=== PATIENT | female | born 1980 | race Caucasian/White ===

== ENCOUNTER 2020-09-21 10:34 | Outpatient (REF) | payer OTHER, SELFPAY ==
[2020-09-29 03:27] LABS: HPV 16 RNA NOT DETECTED (NOT DETECTED); HPV mRNA E6/E7 rflx Detected (Not Detected)
== END 2020-09-21 10:35 | disposition home or self-care (01) ==
LOC: HO.LAB 10:34
PROVIDERS: PCP Internal Medicine; Visit Provider Obstetrics & Gynecology
DX: Z01.419 Encounter for gynecological examination (general) (routine) without abnormal findings (principal); Z11.51 Encounter for screening for human papillomavirus (HPV)
CPT/HCPCS: 87624; 87625; 88142

== ENCOUNTER 2020-10-08 09:38 | Outpatient (REF) | payer OTHER, SELFPAY | END 2020-10-08 09:39 | disposition home or self-care (01) | LOC: HO.LAB 09:38 | PROVIDERS: PCP Internal Medicine; Visit Provider Obstetrics & Gynecology | DX: R87.810 Cervical high risk human papillomavirus (HPV) DNA test positive (principal) | CPT/HCPCS: 57456; 88305; 88342; 88360 ==

== ENCOUNTER → 2020-10-22 11:29 | Outpatient (BNVA) | payer OTHER, SELFPAY | PROVIDERS: PCP Internal Medicine; Visit Provider Obstetrics & Gynecology ==

== ENCOUNTER → 2020-11-15 09:30 | Outpatient (BNVA) | payer OTHER, SELFPAY | PROVIDERS: PCP Internal Medicine; Visit Provider Obstetrics & Gynecology | DX: N87.0 Mild cervical dysplasia (principal) | CPT/HCPCS: 99212 ==

== ENCOUNTER 2020-11-23 08:31 | Day surgery (SDC) | payer OTHER, SELFPAY ==
[2020-11-09 13:17] VITALS: BMI 28.3
--- NOTE | 2020-11-15 08:37 | HO.ANESPROP2 ---
Documented by User: Lisa Maddox 11/15/20 08:37 HPI - Anesthesia Eval Consult details Narrative: 40yo F for [facility] Active Problems Active Problems: All Active Problems (Updated 10/22/20 @ 11:45 by Vinod Gupta MD) Dysplasia of cervix, low grade (OMAR 1) (Acute) ASCUS with positive high risk HPV (Acute) Well woman exam (Acute) Past Medical History Medical History Dysplasia of cervix, low grade (OMAR 1) Family History Family History Maternal Grandmother Breast CA Maternal Aunt Breast CA Surgical History Surgical History H/O hand surgery H/O knee surgery Social History Social History Patient Tobacco Use Status: Never used Tobacco Use of substances other than those prescribed or required for medical reasons: No Are you DNR?: No Advance Directives: No Advance Directives Information Provided: Yes Meds Allergies Allergy/AdvReac Type Severity Reaction Status Date / Time No Known Allergies Allergy Verified 11/23/20 08:58 Home Medications Medication Instructions Recorded Confirmed Last Taken Type l.norgest-eth.estradiol triphasic 1 tab PO DAILY 06/22/20 Unknown History 50-30 (6)/75-40(5)/125-30(10) tablet (Enpresse) Exam Exam Date and Time: November 15, 2020 0837 Height,Weight and Vital Signs: Height 5 ft 4 in Weight 75 kg Assessment and Plan Assessment Anesthesia Assessment: Chart Reviewed Documented by User: Lani Garcia 11/23/20 10:14 PMFSH Past Medical History Medical History Dysplasia of cervix, low grade (OMAR 1) Family History Family History Maternal Grandmother Breast CA Maternal Aunt Breast CA Surgical History Surgical History H/O hand surgery H/O knee surgery Social History Social History Patient Tobacco Use Status: Never used Tobacco Use of substances other than those prescribed or required for medical reasons: No Are you DNR?: No Advance Directives: No Advance Directives Information Provided: Yes Meds Allergies Allergy/AdvReac Type Severity Reaction Status Date / Time No Known Allergies Allergy Verified 11/23/20 08:58 Home Medications Medication Instructions Recorded Confirmed Last Taken Type l.norgest-eth.estradiol triphasic 1 tab PO DAILY 06/22/20 Unknown History 50-30 (6)/75-40(5)/125-30(10) tablet (Enpresse) Exam Airway Mallampati Class: II TM Dist: >3cm Neck ROM: Full Heart: RRR Lungs: CTA Assessment and Plan Assessment Anesthesia Assessment: Anesthesia Plan Discussed and Chart Reviewed Final Anesthetic Review NPO: Yes ASA Class: I Final Preanesthetic Review: Meds/Allgs Chart Reviewed, Consent Obtained/Reviewed and Anes Risks/Benef Reviewed Patient Risk: Low Procedure Risk: Low Anesthetic Plan Anesthetic Plan: GA Disposition: Standard PACU
[2020-11-23 08:48] VITALS: BP 119/70; PULSE 71; RESP 16; TEMP 36.7; O2SAT 100; BMI 25.7
[2020-11-23 08:56] LABS: UPreg QC Valid YES; Urine Pregnancy NEGATIVE (NEGATIVE)
--- NOTE | 2020-11-23 09:05 | MHC.SHP ---
Pre-Procedural Eval Section A Date of Service: 11/23/20 The patient is an INPATIENT: No Changes since office visit: No Cold of Flu in the past 2 weeks, No New Medical Problems, No Changes in Medication and No Patient answered all questions The History & Physical has been completed within 30 days and I have reviewed it.: Yes Section B Chief Complaint: mild cervical dysplasia Allergies: Allergies Allergy/AdvReac Type Severity Reaction Status Date / Time No Known Allergies Allergy Verified 11/23/20 08:58 Plan Diagnosis/Plan: Unchanged I have reviewed the history and physical and performed a pertinent physical examination on my patient. No changes have occurred unless specified.
[2020-11-23] MEDS: Lactated Ringers 1,000 ML 100 ML IVCONT (09:11)
--- NOTE | 2020-11-23 10:21 | PM.OP ---
Brief Operative Note Date of Service: 11/23/20 Pre-op diagnosis: Persistent OMAR 1 with positive ECC Procedure: LEEP CONE with post CONE ECC Surgeon: Vinod Gupta MD Anesthesia: local and other (Paracervical block) Was an Corrosion Prevention Metal Sprayer used for this Procedure?: No Estimated blood loss (mL): 0 Pathology: other (Cervical cone, Post cone ECC) Condition: stable Disposition: other (Home)
--- NOTE | 2020-11-23 10:21 | W.PM.OPN ---
Operative Note Operative Note Date of Service: 11/23/20 Narrative: Preop diagnosis: Persistent OMAR 1 with + ECC Operation: LEEP Cone with post cone ECC Post op diagnosis: same Anesthesia: paracervical block Complications: none Pathology: Cervical cone with endocervix & post cone RCC QBL: minimal Procedure: The patient was put in the dorsal lithotomy position, was prepped and draped in the usual sterile fashion. A sterile speculum was inserted inside the patient vagina. Using Lugol solution the cervix with Dyed with Lugol solution to identifiy the abnormal demarcating line. 10 cc of Marcaine0.5% with epinephrine were given at 2,4 , 8, and 10 o'clock. Using a medium-size loop wire, the cervical cone was excised followed by post cone ECC was done afterwards. Hemostasis was assured using cautery and Monsel solution. All instruments were taken out of the patient's vaginal cavity. the patient tolerated the procedure well and was discharged home with the following instructions: call if temperature is above 100.4, vaginal bleeding, abdominal pain or nausea or vomiting. Follow-up in the office in 2 weeks for postop visit
[2020-11-23 10:30] VITALS: BP 112/54; PULSE 82; RESP 18; TEMP 36.3; O2SAT 100
[2020-11-23 10:35] VITALS: BP 118/54; PULSE 73; RESP 18; O2SAT 97
[2020-11-23 10:40] VITALS: BP 118/54; PULSE 74; RESP 18; O2SAT 97
[2020-11-23 10:45] VITALS: BP 108/53; PULSE 77; RESP 18; O2SAT 97
[2020-11-23 11:00] VITALS: BP 120/68; PULSE 62; RESP 18; TEMP 36.8; O2SAT 100
== END 2020-11-23 11:40 | disposition home or self-care (01) ==
PROVIDERS: Nurse Practitioner; PCP Internal Medicine; Visit Provider Obstetrics & Gynecology
PROC: 0UBC7ZZ Excision of Cervix, Via Natural or Artificial Opening (ICD-10-PCS; CPT 57522; principal; 2020-11-23 10:00)
DX: N87.0 Mild cervical dysplasia (principal); Z79.899 Other long term (current) drug therapy
CPT/HCPCS: 57522; 81025; 88305; 88307; J1100; J1885; J2250; J2405; J3010

== ENCOUNTER 2020-11-26 13:32 | Outpatient (REF) | payer OTHER, SELFPAY ==
--- NOTE | ~2020-11-26 | MM_ITS ---
EXAMINATION: MM SCREENING DIGITAL BREAST TOMOSYNTHESIS, BILATERAL CLINICAL INFORMATION: Screening. Asymptomatic. The lifetime risk of breast cancer based on the Tyrer-Cuzick Model is 17%. COMPARISON: Mammography: 11/23/2019, 10/04/2018 (baseline) TECHNIQUE: Digital breast tomosynthesis is performed in both the craniocaudal and mediolateral oblique views along with computer-aided detection (CAD). Synthesized 2D images are generated from the tomosynthesis. Additional bilateral exaggerated CC views are provided. FINDINGS: The breasts are heterogeneously dense, which may obscure small masses (ACR BI-RADS breast composition Category c). Parenchymal pattern is similar to prior studies. Smooth nodular asymmetry posterior lower inner left breast is stable. There is stable nodular asymmetry posterior upper outer right breast. No developing density or interval mass or architectural abnormality. No abnormal calcifications. The axilla and skin contours are unremarkable. There are no significant changes from prior studies. MM/MM tomosynthesis screening BI IMPRESSION: No significant changes from prior exams. ASSESSMENT: BI-RADS 2: Benign RECOMMENDATION: Routine annual mammography screening. This patient's information was entered into a reminder system with a target due date for their next mammogram.
== END 2020-11-26 13:33 | disposition home or self-care (01) ==
LOC: HO.MAMMO 13:32
PROVIDERS: PCP Internal Medicine; Visit Provider Obstetrics & Gynecology
DX: Z12.31 Encounter for screening mammogram for malignant neoplasm of breast (principal)
CPT/HCPCS: 77063; 77067

== ENCOUNTER → 2020-11-29 11:28 | Outpatient (BNVA) | payer OTHER, SELFPAY | PROVIDERS: PCP Internal Medicine; Visit Provider Obstetrics & Gynecology ==

== ENCOUNTER 2021-11-07 09:37 | Outpatient (REF) | payer OTHER, SELFPAY ==
[2021-11-14 03:52] LABS: HPV 16 RNA NOT DETECTED (NOT DETECTED); HPV mRNA E6/E7 rflx Detected (Not Detected)
== END 2021-11-07 09:38 | disposition home or self-care (01) ==
LOC: HO.LAB 09:37
PROVIDERS: Visit Provider Obstetrics & Gynecology
DX: Z01.419 Encounter for gynecological examination (general) (routine) without abnormal findings (principal); Z11.51 Encounter for screening for human papillomavirus (HPV)
CPT/HCPCS: 87624; 87625; 88142

== ENCOUNTER 2021-11-25 14:20 | Outpatient (REF) | payer OTHER, SELFPAY | END 2021-11-25 14:21 | disposition home or self-care (01) | LOC: HO.LAB 14:20 | PROVIDERS: PCP Internal Medicine; Visit Provider Obstetrics & Gynecology | DX: R87.612 Low grade squamous intraepithelial lesion on cytologic smear of cervix (LGSIL) (principal) | CPT/HCPCS: 57454; 81025; 88305 ==

== ENCOUNTER 2021-11-28 10:33 | Outpatient (REF) | payer OTHER, SELFPAY ==
--- NOTE | ~2021-11-28 | MM_ITS ---
EXAMINATION: MM SCREENING DIGITAL BREAST TOMOSYNTHESIS, BILATERAL CLINICAL INFORMATION: Screening. Asymptomatic. The lifetime risk of breast cancer based on the Tyrer-Cuzick Model is 16.0%. COMPARISON: Mammography: November 26, 2020 and studies dating back to October 04, 2018 TECHNIQUE: Digital breast tomosynthesis is performed in both the craniocaudal and mediolateral oblique views along with computer-aided detection (CAD). Synthesized 2D images are generated from the tomosynthesis. FINDINGS: The breasts are heterogeneously dense, which may obscure small masses (ACR BI-RADS breast composition Category c). There is a stable parenchymal pattern seen bilaterally with stable circumscribed densities. No new abnormal dominant mass or suspicious grouping of microcalcifications. MM/MM tomosynthesis screening BI IMPRESSION: There are no significant changes from prior study. ASSESSMENT: BI-RADS 1: Negative RECOMMENDATION: Routine annual mammography screening. This patient's information was entered into a reminder system with a target due date for their next mammogram.
== END 2021-11-28 10:34 | disposition home or self-care (01) ==
LOC: HO.MAMMO 10:33
PROVIDERS: PCP Internal Medicine; Visit Provider Internal Medicine
DX: Z12.31 Encounter for screening mammogram for malignant neoplasm of breast (principal)
CPT/HCPCS: 77063; 77067

== ENCOUNTER → 2021-12-11 10:13 | Outpatient (BNVA) | payer OTHER, SELFPAY | PROVIDERS: PCP Internal Medicine; Visit Provider Obstetrics & Gynecology | DX: R87.612 Low grade squamous intraepithelial lesion on cytologic smear of cervix (LGSIL) (principal) | CPT/HCPCS: 99212 ==

== ENCOUNTER → 2021-12-25 08:44 | Outpatient (BNVA) | payer OTHER, SELFPAY | PROVIDERS: PCP Internal Medicine; Visit Provider Obstetrics & Gynecology | DX: R87.612 Low grade squamous intraepithelial lesion on cytologic smear of cervix (LGSIL) (principal) | CPT/HCPCS: 99212 ==

== ENCOUNTER 2021-12-27 09:56 | Outpatient (REF) | payer OTHER, SELFPAY ==
[2021-12-27 10:44] LABS: Hematocrit 37.5 % (37.0-47.0); Hemoglobin 13.4 g/dl (12.0-16.0); Mean Corpuscular HGB Conc 35.7 g/dl (31.0-35.0); Mean Corpuscular Hemoglobin 30.9 pg (27.0-33.0); Mean Corpuscular Volume 86.6 fL (80.0-98.0); Mean Platelet Volume 9.3 fL (9.4-12.3); Platelet Count 196 X10*3/uL (160-400); Red Blood Count 4.33 X10*6/uL (4.20-5.50); Red Cell Distribution Width 12.4 % (11.0-16.0); White Blood Count 5.9 X10*3/uL (4.8-10.8)
[2021-12-27 11:12] LABS: Alanine Aminotransferase 25 U/L (0-31); Albumin Level 4.2 g/dL (3.5-5.0); Alkaline Phosphatase 38 U/L (39-117); Anion Gap 14 (12-20); Aspartate Amino Transferase 23 U/L (5-31); Bilirubin Total 0.9 mg/dL (0.0-1.0); Blood Urea Nitrogen 7 mg/dL (9-16); Calcium 9.2 mg/dL (8.4-10.2); Carbon Dioxide 25 mmol/L (22-29); Chloride 106 mmol/L (96-108); Cholesterol 222 mg/dL; Estimated Glomerular Filt Rate > 60; Glucose Fasting 82 mg/dL (60-99); HDL Cholesterol 57 mg/dL; LDL Cholesterol Calculated 144 mg/dl; Potassium 3.7 mmol/L (3.3-5.1); Sodium 141 mmol/L (135-145); Triglycerides 107 mg/dL
[2021-12-27 11:25] LABS: TSH reflex Free T4 3.32 uIU/mL (0.32-4.0); Vitamin D 25-OH Total 30.9 ng/mL (>30)
[2021-12-27 12:00] LABS: Folate 17.1 ng/mL (> or = 4.0); Vitamin B12 257 pg/mL (200-900)
== END 2021-12-27 09:57 | disposition home or self-care (01) ==
LOC: HO.LAB 09:56
PROVIDERS: PCP Internal Medicine; Visit Provider Nurse Practitioner Family
DX: Z00.00 Encounter for general adult medical examination without abnormal findings (principal)
CPT/HCPCS: 36415; 80053; 80061; 82306; 82607; 82746; 84443; 85027

== ENCOUNTER → 2022-01-24 10:01 | Day surgery (SDC) | payer OTHER, SELFPAY ==
[2022-01-20 10:40] VITALS: BMI 27.4
--- NOTE | 2022-01-22 14:16 | HO.ANESPROP2 ---
Documented by User: Lisa Maddox NP 01/22/22 14:18 HPI - Anesthesia Eval Consult details Narrative: 41yo F for LEEP Cone with post cone ECC s/p LEEP 10/2020 with GA-LMA 4 PMFSH Active Problems Active Problems: All Active Problems (Updated 12/27/21 @ 13:43 by RENAY Merida) Well woman exam (Acute) ASCUS with positive high risk HPV (Acute) Dysplasia of cervix, low grade (OMAR 1) (Acute) LGSIL on Pap smear of cervix (Acute) Adult general medical exam (Acute) Hyperlipidemia (Acute) Overweight (BMI 25.0-29.9) (Acute) Past Medical History Medical History Overweight (BMI 25.0-29.9) Dysplasia of cervix, low grade (OMAR 1) Family History Family History Maternal Grandmother Breast CA Maternal Aunt Breast CA Surgical History Surgical History History of loop electrical excision procedure (LEEP) H/O knee surgery H/O hand surgery Social History Housing: House Alcohol intake: current Alcohol intake frequency: holidays/special occasions only Alcohol type: wine Patient Tobacco Use Status: Never used Tobacco e-Cigarette/Vaping Use: Never Used Second Hand Smoke Exposure: No service: No Current occupational status: employed Current occupational exposures/hazards: No Cognitive needs: No Hearing needs: No Vision needs: No Meds Allergies Allergy/AdvReac Type Severity Reaction Status Date / Time No Known Allergies Allergy Verified 01/06/23 10:38 Home Medications Medication Instructions Recorded Confirmed Last Taken Type copper 380 square mm intrauterine intrauterine 12/31/22 01/06/23 Unknown History device (ParaGard T 380A) Exam Exam Date and Time: January 22, 2022 1416 Height,Weight and Vital Signs: Height 5 ft 4 in Weight 72.575 kg Pertinent Lab Results Pertinent Lab Results: Laboratory Tests 12/27/21 12/27/21 10:09 10:09 WBC 5.9 Hgb 13.4 Hct 37.5 Plt Count 196 Sodium 141 Potassium 3.7 Chloride 106 Carbon Dioxide 25 BUN 7 L Creatinine 0.68 Documented by User: Mario Alberto Mckeon MD 03/20/23 00:42 [facility] [place] Past Medical History Medical History Overweight (BMI 25.0-29.9) Dysplasia of cervix, low grade (OMAR 1) Functional capacity: independent ambulation Family History Family History Maternal Grandmother Breast CA Maternal Aunt Breast CA Family history of problems with anesthesia: No Surgical History Surgical History History of loop electrical excision procedure (LEEP) H/O knee surgery H/O hand surgery History of Problems with Anesthesia: No Social History Housing: House Alcohol intake: current Alcohol intake frequency: holidays/special occasions only Alcohol type: wine Patient Tobacco Use Status: Never used Tobacco e-Cigarette/Vaping Use: Never Used Second Hand Smoke Exposure: No service: No Current occupational status: employed Current occupational exposures/hazards: No Cognitive needs: No Hearing needs: No Vision needs: No Meds Allergies Allergy/AdvReac Type Severity Reaction Status Date / Time No Known Allergies Allergy Verified 01/06/23 10:38 Home Medications Medication Instructions Recorded Confirmed Last Taken Type copper 380 square mm intrauterine intrauterine 12/31/22 01/06/23 Unknown History device (ParaGard T 380A) Exam Airway Mallampati Class: III TM Dist: >3cm Loose/Missing/Broken Teeth: Yes (Fillings ) Assessment and Plan Assessment Anesthesia Assessment: Anesthesia Plan Discussed and Chart Reviewed Final Anesthetic Review Family History of Problems with Anesthesia: No History of Problems with Anesthesia: No NPO: Yes ASA Class: II Final Preanesthetic Review: Meds/Allgs Chart Reviewed, Consent Obtained/Reviewed and Anes Risks/Benef Reviewed Patient Risk: Intermediate Procedure Risk: Intermediate Anesthetic Plan Anesthetic Plan: GA and Agree w/ Assess. and Plan Disposition: Standard PACU
[2022-01-24 10:12] VITALS: BMI 27.4
[2022-01-24 10:17] VITALS: BP 131/76; PULSE 72; RESP 16; TEMP 36.7; O2SAT 98
[2022-01-24 10:21] LABS: UPreg QC Valid YES; Urine Pregnancy NEGATIVE (NEGATIVE)
[2022-01-24] MEDS: Lactated Ringers 1,000 ML 100 ML IVCONT (10:34)
--- NOTE | 2022-01-24 11:19 | MHC.SHP ---
Pre-Procedural Eval Section A Date of Service: 01/24/22 The patient is an INPATIENT: No Changes since office visit: No Cold of Flu in the past 2 weeks, No New Medical Problems, No Changes in Medication and No Patient answered all questions The History & Physical has been completed within 30 days and I have reviewed it.: Yes Section B Chief Complaint: Low grade squamous intraepithelial lesion on cytol Allergies: Allergies Allergy/AdvReac Type Severity Reaction Status Date / Time No Known Allergies Allergy Verified 12/27/21 09:40 Plan Diagnosis/Plan: Unchanged I have reviewed the history and physical and performed a pertinent physical examination on my patient. No changes have occurred unless specified.
--- NOTE | 2022-01-24 12:12 | P.BOP_ITS ---
Brief Operative Note Date of Service: 01/24/22 Pre-op diagnosis: Discrepancy between cytology showing low-grade VENUS cannot exclude high-grade VENUS and pathology, normal on cervical biopsies/ECC Post-op diagnosis: same Procedure: LEEP CONE with post CONE ECC Surgeon: Vinod Gupta MD Anesthesia: GLMA and other (Paracervical block) Was an Adjustment Examiner used for this Procedure?: No Estimated blood loss (mL): 0 Pathology: other (Cervical cone, top-hat, Post cone ECC) Condition: stable Disposition: other (Home)
--- NOTE | 2022-01-24 12:13 | P.OP_ITS ---
Operative Note Operative Note Date of Service: 01/24/22 Narrative: Preop diagnosis: Discrepancy between cytology showing LGSIL cannot rule out high-grade VENUS, pathology , normal on biopsies/ECC Operation: LEEP Cone with post cone ECC Post op diagnosis: same Anesthesia: paracervical block/GLMA Complications: none Pathology: Cervical cone with top-hat & post cone ECC QBL: minimal Procedure: The patient was put in a dorsal lithotomy position, scrubbed and draped in the usual sterile fashion. A speculum was inserted inside the patient's vagina. The cervix is assessed using the colposcope with acetic acid , the lesions were seen, and at least 1 cm of the squamocolumnar junction was observed. 20 x 5 mm size loop was selected based upon the diameter of the lesion. Lugol solution was used to outline the lesions and area of the transformation zone order to be removed 10 cc of xylocaine with epinephrine were injected submucosally into the surface of the cervix (ectocervix) at the 3, 6, 9, and 12 o'clock positions. The electrosurgical generator is set at 40 king on blend 1. The loop is carefully passed simultaneously around and under the transformation zone, in order to ensure excising it making sure the lesion is at least 5 mm far from the specimen margins . The loop was allowed to glide through the cervix from one side to the other, allowing the cutting current to divide the tissue. Additional tissue was excised from this area with a smaller-diameter loop , endo cervical top-hat excision was performed An endo cervical curettage is performed following completion of excision, and hemostasis is obtained with a Ball electrode or regular tip cautery. At the en d, Monsel's solution was applied to the cone bed. The patient tolerated the procedure well and, all instruments were taken out of the patient vaginal cavity, and the patient was transferred to the PACU in stable condition.
[2022-01-24 12:25] VITALS: BP 132/64; PULSE 72; RESP 16; TEMP 36.1; O2SAT 100
[2022-01-24 12:30] VITALS: BP 116/61; PULSE 75; RESP 16; O2SAT 98
[2022-01-24 12:35] VITALS: BP 132/66; PULSE 74; RESP 16; O2SAT 98
[2022-01-24 12:40] VITALS: BP 128/73; PULSE 60; RESP 16; TEMP 36.1; O2SAT 98
[2022-01-24 12:55] VITALS: BP 140/77; PULSE 65; RESP 16; TEMP 36.1; O2SAT 100
== END | disposition home or self-care (01) ==
PROVIDERS: Nurse Practitioner; PCP Internal Medicine; Visit Provider Obstetrics & Gynecology
PROC: 0UBC7ZZ Excision of Cervix, Via Natural or Artificial Opening (ICD-10-PCS; CPT 57522; principal; 2022-01-24 11:30)
DX: R87.612 Low grade squamous intraepithelial lesion on cytologic smear of cervix (LGSIL) (principal); E66.3 Overweight; Z68.27 Body mass index [BMI] 27.0-27.9, adult
CPT/HCPCS: 57461; 81025; 88305; 88307; J1100; J2250; J2405; J3010

== ENCOUNTER → 2022-05-13 13:32 | Outpatient (BNVA) | payer OTHER, SELFPAY | PROVIDERS: Visit Provider Obstetrics & Gynecology | DX: Z30.09 Encounter for other general counseling and advice on contraception (principal) | CPT/HCPCS: 99212 ==

== ENCOUNTER 2022-08-19 11:24 | Outpatient (REF) | payer OTHER, SELFPAY ==
[2022-08-23 09:13] LABS: HPV 16 RNA NOT DETECTED (NOT DETECTED); HPV mRNA E6/E7 rflx Detected (Not Detected)
== END 2022-08-19 11:25 | disposition home or self-care (01) ==
LOC: HO.LNP 11:24
PROVIDERS: Visit Provider Obstetrics & Gynecology
DX: Z12.4 Encounter for screening for malignant neoplasm of cervix (principal); Z11.51 Encounter for screening for human papillomavirus (HPV); N87.1 Moderate cervical dysplasia
CPT/HCPCS: 87624; 87625; 88142; 99212

== ENCOUNTER 2022-09-18 08:43 | Outpatient (REF) | payer OTHER, SELFPAY | END 2022-09-18 08:44 | disposition home or self-care (01) | LOC: HO.LNP 08:43 | PROVIDERS: Visit Provider Obstetrics & Gynecology | DX: N87.1 Moderate cervical dysplasia (principal) | CPT/HCPCS: 57454; 81025; 88305 ==

== ENCOUNTER → 2022-10-23 08:35 | Outpatient (BNVA) | payer OTHER, SELFPAY | PROVIDERS: Visit Provider Obstetrics & Gynecology | DX: Z30.09 Encounter for other general counseling and advice on contraception (principal); N87.0 Mild cervical dysplasia | CPT/HCPCS: 99212 ==

== ENCOUNTER 2022-11-17 14:52 | Outpatient (AMB) | payer OTHER, SELFPAY ==
[2022-11-17 15:04] VITALS: BP 128/74; BMI 26.9
--- NOTE | 2022-11-17 15:04 | A.OFFVIS_ITS ---
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 Allergies No Known Allergies Allergy (Verified 11/17/22 15:04) Is last menstrual period known: Yes Last menstrual period: 11/13/22 [facility] Medical History Dysplasia of cervix, low grade (OMAR 1) Overweight (BMI 25.0-29.9) Surgical History H/O hand surgery H/O knee surgery History of loop electrical excision procedure (LEEP) Family History Maternal Grandmother Breast CA Maternal Aunt Breast CA Social History Housing: House Alcohol intake: current Alcohol intake frequency: holidays/special occasions only Alcohol type: wine Patient Tobacco Use Status: Never used Tobacco e-Cigarette/Vaping Use: Never Used Second Hand Smoke Exposure: No service: No Current occupational status: employed Current occupational exposures/hazards: No Cognitive needs: No Hearing needs: No Vision needs: No Female Reproductive History Menstrual Age of Menarche: 11 Date of last menstrual period: 11/13/22 Physical Exam Vital Signs: Last Vital Signs BP 128/74 11/17/22 15:04 BMI result Body Mass Index 26.9 Office Procedures IUD Insert/Removal Details Details: The patient is presenting for Paraguard IUD insertion. Her last menstrual period was within the last 5 days, Urine test was done in the office and was negative; All the contraindications were excluded. The following possible complications were discussed with the patient: Intrauterine , Ectopic , Sepsis, Pelvic Infection, Irregular Bleeding, Perforation, Expulsion. The possible adverse effects were discussed with the patient including but not limited to: increased uterine bleeding, dysmenorrhea , others Alternative options were discussed with the patient including but not limited: control pills, patch, NuvaRing, Depo-medroxyprogesterone acetate, Nexplanon, copper IUD, sterilization, vasectomy, others The procedure was explained in detail to patient , at the end patient signed the informed consent obtained. Urine test was done in the office and was negative A no touch technique was used throughout the procedure. A speculum was placed into vagina and cervix was cleaned with betadine). A tenaculum was placed. A plastic sound was advanced through the external and internal os until it reached the fundus of the uterus, the depth was 7 cm. The sound was then withdrawn. The ParaGard IUD was loaded in a sterile manner and advanced into position. The string was visualized and cut to 3 cm. Tenaculum site hemostatic. All instruments removed from vagina. Patient tolerated the procedure well. NO complications were noted. Patient was instructed to call for fever over 100.4, significant pain unrelieved by Motrin, IUD expulsion, heavy bleeding, or abnormal discharge. In addition, the following clinical considerations were discussed with the patient to call for removal: Unexplained fever , or suspected , Pelvic pain or pain during sex ,HIV positive seroconversion in herself or her partner , Possible exposure to sexually transmitted infections Unusual vaginal discharge or genital sores , severe vaginal bleeding or bleeding that lasts a long time, or if she misses a menstrual period, Inability to feel IUD s threads Counseled the patient that the IUD does not protect against STI's, recommended use of condoms for the first 7 days post insertion and explained to the patient that condoms are recommended for patients at risk for sexually transmitted infections. Follow up appointment made for 6 weeks following insertion. This note was generated with a voice recognition program. Some errors may have been overlooked during the review of this note. Sometimes these errors may affect the content or meaning of a given sentence. [id number] Insertion Procedure code (CPT) selection complete Office Meds ParaGard T 380A Performing Provider: Vinod Gupta MD Documented (not given) by: Vinod Gupta MD on 11/17/22 15:14 Dose Route Admin Location Lot Number Expiration Date NDC [employer] Room Attendant 1 device intrauterine Results AMB Test Urine AMB Test Urine Negative Last Edit by TRIPP Loredo on 11/17/22 15:05 Results Reviewed Results Reviewed: Laboratory Last Values [facility] Clinic Negative 11/17/22 15:05 Assessment & Plan Assessment & Plan Orders: Orders CT NG by PCR Today Z30.430 - Encounter for insertion of intrauterine contraceptive device AMB IUD Insertion/Removal - Patient Supply Today Z30.430 - Encounter for insertion of intrauterine contraceptive device AMB HCG Urine Test Today Z32.02 - Encounter for test, result negative Medications: New ParaGard T 380A (copper) 1 device intrauterine ONCE 1 ea 0RF IUD insertion NS Z30.430 - Encounter for insertion of intrauterine contraceptive device Coding Level of Care Code Procedure Only Diagnoses CPT Codes Details - CPT: 72826-RDR Insertion ([id number])
== END 2022-11-17 15:16 | disposition home or self-care (01) ==
LOC: HO.HWS 14:52
PROVIDERS: PCP Internal Medicine; Visit Provider Obstetrics & Gynecology
DX: Z30.430 Encounter for insertion of intrauterine contraceptive device (principal); Z32.02 Encounter for pregnancy test, result negative
CPT/HCPCS: 58300

== ENCOUNTER 2022-11-17 14:52 | Outpatient (REF) | payer OTHER, SELFPAY ==
[2022-11-17 18:01] LABS: CT PCR NOT DETECTED (Not Detect.); NG PCR NOT DETECTED (Not Detect.)
== END 2022-11-17 14:53 | disposition home or self-care (01) ==
LOC: HO.LNP 14:52
PROVIDERS: PCP Internal Medicine; Visit Provider Obstetrics & Gynecology
DX: Z30.430 Encounter for insertion of intrauterine contraceptive device (principal)
CPT/HCPCS: 0353U; 58300; 81025; J7300

== ENCOUNTER 2022-12-01 12:27 | Outpatient (REF) | payer OTHER, SELFPAY ==
--- NOTE | ~2022-12-01 | MM_ITS ---
EXAMINATION: MM SCREENING DIGITAL BREAST TOMOSYNTHESIS, BILATERAL CLINICAL INFORMATION: Screening. Asymptomatic. The lifetime risk of breast cancer based on the Tyrer-Cuzick Model is 16.2%. COMPARISON: Mammography: 11/28/2021, 11/26/2020, 10/04/2018. TECHNIQUE: Digital breast tomosynthesis is performed in both the craniocaudal and mediolateral oblique views along with computer-aided detection (CAD). Synthesized 2D images are generated from the tomosynthesis. FINDINGS: The breasts are heterogeneously dense, which may obscure small masses (ACR BI-RADS breast composition Category c). There are no suspicious masses, suspicious grouped calcifications, or areas of architectural distortion. The parenchymal pattern is stable from prior exams. There are stable small circumscribed nodular parenchymal densities in both breasts. MM/MM tomosynthesis screening BI IMPRESSION: No mammographic evidence of malignancy. Stable benign findings. ASSESSMENT: BI-RADS BI-RADS 2 - Benign Findings RECOMMENDATION: Routine annual mammography screening. 1 year F/U This examination should not preclude the clinical evaluation of a suspicious palpable abnormality. This patient's information was entered into a reminder system with a target due date for their next mammogram.
== END 2022-12-01 12:28 | disposition home or self-care (01) ==
LOC: HO.MAMMO 12:27
PROVIDERS: PCP Internal Medicine; Visit Provider Internal Medicine
DX: Z12.31 Encounter for screening mammogram for malignant neoplasm of breast (principal)
CPT/HCPCS: 77063; 77067

== ENCOUNTER → 2022-12-01 12:30 | Outpatient (BNV) | payer OTHER, SELFPAY | PROVIDERS: PCP Internal Medicine; Visit Provider Radiology Diagnostic Radiology | DX: Z12.31 Encounter for screening mammogram for malignant neoplasm of breast (principal) | CPT/HCPCS: 77063; 77067 ==

== ENCOUNTER 2022-12-31 08:33 | Outpatient (AMB) | payer OTHER, SELFPAY ==
--- NOTE | 2022-12-31 08:38 | A.OFFVIS_ITS ---
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 The patient is complaining of heavier and prolonged menstrual cycle [facility] Medical History Dysplasia of cervix, low grade (OMAR 1) Overweight (BMI 25.0-29.9) Surgical History H/O hand surgery H/O knee surgery History of loop electrical excision procedure (LEEP) Family History Maternal Grandmother Breast CA Maternal Aunt Breast CA Social History Housing: House Alcohol intake: current Alcohol intake frequency: holidays/special occasions only Alcohol type: wine Patient Tobacco Use Status: Never used Tobacco e-Cigarette/Vaping Use: Never Used Second Hand Smoke Exposure: No service: No Current occupational status: employed Current occupational exposures/hazards: No Cognitive needs: No Hearing needs: No Vision needs: No Female Reproductive History Menstrual Age of Menarche: 11 Date of last menstrual period: 12/30/22 Review of Systems Const All systems reviewed & are unremarkable except as noted in HPI and below Physical Exam Vital Signs: Last Vital Signs BP 130/70 12/31/22 08:43 BMI result Body Mass Index 26.9 General: Yes no CVA tenderness External Female Exam: normal external appearance and normal appearance of the urethra Speculum Exam - Vagina: normal appearance of the vagina, normal palpation, no lesions and no masses Speculum Exam - Cervix: normal appearance of the cervix, normal palpation, no lesions, no masses, nontender and Other cervical findings present (IUD thread in place) Bimanual exam- vagina & uterus: normal bimanual exam, normal palpation, uterine size normal, normal palpation, uterine shape normal, No Cervical tenderness present and non-tender Bimanual Exam- Adnexa, other: normal adnexae Back/Spine/Pelvis Back: no CVA tenderness Assessment & Plan Assessment & Plan (1) IUD check up: Code(s): Z30.431 - Encounter for routine checking of intrauterine contraceptive device Plan: UPT done in the office was negative. Recommended nonsteroidal anti-inflammatory drugs p.o. q.8 hours day 1-3 in an effort to decrease dysmenorrhea and hypermenorrhea secondary to ParaGard IUD. Discussed with the patient the finding on physical exam, IUD string in place, the patient was reassured. Instructions given to patient to call in case of persistent heavy menstrual cycle, temperature above 100.4, severe cramping/pelvic pain, abnormal discharge or abnormal uterine bleeding or if she misses her. Otherwise follow-up at her annual exam appointment. All questions answered, the patient verbalized u nderstanding. Coding Level of Care Code Est Pt Level 3 (05091) Diagnoses IUD check up Z30.431
[2022-12-31 08:43] VITALS: BP 130/70; BMI 26.9
== END 2022-12-31 09:20 | disposition home or self-care (01) ==
PROVIDERS: PCP Internal Medicine; Visit Provider Obstetrics & Gynecology
DX: Z30.431 Encounter for routine checking of intrauterine contraceptive device (principal)
CPT/HCPCS: 99213

== ENCOUNTER → 2022-12-31 08:33 | Outpatient (BNVA) | payer OTHER, SELFPAY | PROVIDERS: PCP Internal Medicine; Visit Provider Obstetrics & Gynecology | DX: Z30.431 Encounter for routine checking of intrauterine contraceptive device (principal) | CPT/HCPCS: 99212 ==

== ENCOUNTER 2023-01-06 10:15 | Outpatient (AMB) | payer OTHER, SELFPAY ==
[2023-01-06 10:24] VITALS: BP 110/72; BMI 26.6
--- NOTE | 2023-01-06 10:24 | A.OFFPC_ITS ---
Vital Signs 01/06/23 10:24 Height 5 ft 4 in Weight 155 lb BMI 26.6 BP 110/72 Blood Pressure Location Lt brachial Position Sitting Intake Visit Reasons: PE Intake Note: Patient here for a physical exam Rehabilitation Tech Required: No Accompanied by: Self / Same As Patient Allergies No Known Allergies Allergy (Verified 01/06/23 10:38) Medication List - Last Reconciled 01/06/23 by Asia King MD copper (ParaGard T 380A) intrauterine Tobacco use date assessed: 01/06/23 Dental Screening Dental Screen Date: 01/06/23 Did you have a dental visit in the last 12 months?: Yes Did you have a dental problem in the last 6 months where you did not have access to dental care?: No Was dental information given to patient?: Patient has dentist HPI HPI Comments History of Present Illness Details This is a 42-year-old female that comes for her physical exam. Last mammogram was November 2022 and was normal. Last Pap smear was August 2022 and was normal. No chest pain or shortness of breath. No acute complaints. [facility] Medical History Overweight (BMI 25.0-29.9) Dysplasia of cervix, low grade (OMAR 1) Surgical History History of loop electrical excision procedure (LEEP) H/O knee surgery H/O hand surgery Family History Maternal Grandmother Breast CA Maternal Aunt Breast CA Social History Housing: House Alcohol intake: current Alcohol intake frequency: holidays/special occasions only Alcohol type: wine Patient Tobacco Use Status: Never used Tobacco e-Cigarette/Vaping Use: Never Used Second Hand Smoke Exposure: No service: No Current occupational status: employed Current occupational exposures/hazards: No Cognitive needs: No Hearing needs: No Vision needs: No Female Reproductive History Menstrual Age of Menarche: 11 Questionnaire PHQ-9 Over the last 2 weeks, how often have you been bothered by any of the following problems? 1. Little interest or pleasure in doing things: not at all 2. Feeling down, depressed, or hopeless: not at all 3. Trouble falling or staying asleep, or sleeping too much: not at all 4. Feeling tired or having little energy: not at all 5. Poor appetite or overeating: not at all 6. Feeling bad about yourself - or that you are a failure or have let yourself or your family down: not at all 7. Trouble concentrating on things, such as reading the newspaper or watching television: not at all 8. Moving or speaking so slowly that other people could have noticed. Or the opposite - being so fidgety or restless that you have been moving around a lot more than usual: not at all 9. Thoughts that you would be better off or of hurting yourself in some way: not at all Total score: 0 Depression Screening Interpretation: Negative 93365 - PHQ-9 Billing: Yes Source: Developed by Drs. Seferino Solano, Cathy Merchant, Joshua Nj and colleagues, with an educational johnathon from [employer]. Thrive Questionnaire Date Thrive assessed: 01/06/23 I am a: Patient What is your living situation today?: I have a steady place to live Within the past 12 months, did the food you bought not last and you didn't have the money to get more?: Never true Within the past 12 months, did you worry whether your food would run out before you got money to buy more?: Never true Do you have trouble paying for medicines?: No Do you have trouble getting transportation to medical appointments?: No Do you have trouble paying your heating and electricity bill?: No Do you have trouble taking care of your child, family member or friend?: No Do you have trouble with day-to-day activities such as bathing, preparing meals, shopping, managing finances, etc.?: No Are you currently unemployed and looking for a job?: No Are you interested in more education?: No Please select the resources that you would like help with: None Currently or been in a relationship where the following occur: no concerns reported AUDIT C Alcohol Use Questionnaire (AUDIT-C) 1. How often do you have a drink containing alcohol?: Monthly or less 2. How many drinks containing alcohol do you have on a typical day when you are drinking?: 1 or 2 3. How often do you have six or more drinks on one occasion?: Never Total Score: 1 Score Reviewed/Action Taken: No MAURILIO-7 AMB Questionnaire MAURILIO-7 Date MAURILIO - 7 assessed: 01/06/23 Feeling nervous, anxious, or on edge: 0 = Not at all Not being able to stop or control worryin = Not at all Worrying too much about different things: 0 = Not at all Trouble relaxin = Not at all Being so restless that it is hard to sit still: 0 = Not at all Becoming easily annoyed or irritable: 0 = Not at all Feeling afraid as if something awful might happen: 0 = Not at all Total MAURILIO-7 score (0-4 normal; 5-9 mild; 10-14 moderate; 15-21 severe): 0 Source: Developed by Drs. Seferino Solnao, Cathy Merchant, Joshua Nj and colleagues, with an educational johnathon from [employer]. MAURILIO-7 Assessment Billing MAURILIO-7 Assessment Tool: MAURILIO-7 Assessment 20357 Review of Systems Const All systems reviewed & are unremarkable except as noted in HPI and below Eyes Reports no additional complaints, Denies change in vision and Denies other visual disturbances Card Denies chest pain at rest, Denies chest pain with activity, Denies edema, Denies irregular heart rhythm, Denies claudication, Denies dyspnea, Denies dyspnea on exertion, Denies orthopnea, Denies paroxysmal nocturnal dyspnea and Denies slow heart rate Resp Denies cough, Denies dyspnea and Denies dyspnea on exertion GI Denies abdominal pain, Denies change in bowel habits, Denies excessive flatus, Denies nausea and Denies vomiting Denies urinary incontinence, Denies urinary hesitancy and Denies urinary urgency Musc Denies abnormal gait, Denies atrophy, Denies deformity and Denies limited range of motion Skin/Breast Denies bleeding lesions, Denies changing lesions and Denies rash Neuro Denies abnormal gait, Denies confusion and Denies lack of coordination Psych Denies confusion Physical exam (Primary Care) Vital Signs: Last Vital Signs BP 110/72 01/06/23 10:24 BMI result Body Mass Index 25.9 Tobacco/Smoking Status: Tobacco use Status Tobacco use date assessed 01/06/23 01/06/23 10:29 Patient Tobacco Use Status Never used Tobacco 01/06/23 10:29 e-Cigarette/Vaping Use Never Used 01/06/23 10:29 PHQ-9: PHQ-9 Score PHQ-9: Total score 0 01/06/23 10:29 Depression Screening Interpretation: Negative Thrive Assessment: Date of Thrive Assessment Date Thrive assessed 01/06/23 01/06/23 10:29 Currently or been in a relationship where the following occur: no concerns reported Const General: No confusion Orientation/consciousness: patient oriented x3 and No confusion Eyes General: appearance normal, both eyes and all related structures Eyelids: Yes eyelids normal Conjunctivae: conjunctivae normal Neck Neck: Yes normal visual inspection and Yes supple Resp Effort & Inspection: normal respiratory effort Auscultation: clear to auscultation bilaterally Cardio Jugular venous distension: no JVD Rate: regular rate Rhythm: regular rhythm Heart sounds: S1 normal heart sound present and S2 normal heart sound present GI Inspection: Yes normal to inspection Palpation (GI): Soft to palpation and nontender Auscultation: normal bowel sounds Skin General skin exam: no rashes or lesions noted Neuro General: patient oriented x3, no focal motor deficits and No confusion Extrem General: Yes full ROM Psych Appearance: grossly normal Assessment and Plan Assessment & Plan (1) Adult general medical exam: Code(s): Z00.00 - Encounter for general adult medical examination without abnormal findings Plan: Repeat in a year Coding Level of Care Code Est Pt Prev Care 40-64y(24168) Diagnoses Adult general medical exam Z00.00 Additional Codes MAURILIO-7 Assessment Billing - MAURILIO-7 Assessment Tool: MAURILIO-7 Assessment 49473 ([id number]) Time Spent (min) 30
== END 2023-01-06 11:33 | disposition home or self-care (01) ==
PROVIDERS: PCP Internal Medicine; Visit Provider Internal Medicine
DX: Z00.00 Encounter for general adult medical examination without abnormal findings (principal)
CPT/HCPCS: 99396

== ENCOUNTER 2023-08-31 10:19 | Outpatient (REF) | payer OTHER, SELFPAY ==
[2023-08-31 15:13] LABS: CT PCR NOT DETECTED (Not Detect.); NG PCR NOT DETECTED (Not Detect.)
[2023-09-04 01:54] LABS: HPV mRNA E6/E7 rflx Not Detected (Not Detected)
== END 2023-08-31 10:20 | disposition home or self-care (01) ==
LOC: HO.LNP 10:19
PROVIDERS: Visit Provider Obstetrics & Gynecology
DX: Z01.419 Encounter for gynecological examination (general) (routine) without abnormal findings (principal); R87.610 Atypical squamous cells of undetermined significance on cytologic smear of cervix (ASC-US); R87.810 Cervical high risk human papillomavirus (HPV) DNA test positive; N92.6 Irregular menstruation, unspecified; N93.9 Abnormal uterine and vaginal bleeding, unspecified
CPT/HCPCS: 0353U; 87624; 88142; 99396

== ENCOUNTER 2023-08-31 10:19 | Outpatient (AMB) | payer OTHER, SELFPAY ==
--- NOTE | 2023-08-31 10:20 | A.OFFVIS_ITS ---
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 Complaining of irregular menstrual cycles preop Last Pap/HPV was in 08/17 ascus/HPV E6/E7 positive, colpo/biopsy/ECC was OMAR 1 Last Mammogram was BI-RADS 2 in 12/17 No previous screening colonoscopy PFSH Medical History Overweight (BMI 25.0-29.9) Dysplasia of cervix, low grade (OAMR 1) Surgical History History of loop electrical excision procedure (LEEP) H/O knee surgery H/O hand surgery Family History Maternal Grandmother Breast CA Maternal Aunt Breast CA Social History Housing: House Alcohol intake: current Alcohol intake frequency: holidays/special occasions only Alcohol type: wine Patient Tobacco Use Status: Never used Tobacco e-Cigarette/Vaping Use: Never Used Second Hand Smoke Exposure: No service: No Current occupational status: employed Current occupational exposures/hazards: No Cognitive needs: No Hearing needs: No Vision needs: No Female Reproductive History Menstrual Age of Menarche: 11 Date of last pap smear: 08/20/22 Date of Mammogram: 12/01/22 Review of Systems Const All systems reviewed & are unremarkable except as noted in HPI and below Card Reports as per HPI Resp Reports as per HPI GI Reports as per HPI and Reports no additional complaints Reports as per HPI Physical Exam Vital Signs: Last Vital Signs BP 116/62 08/31/23 10:21 BMI result Body Mass Index 26.8 Const General: cooperative, healthy appearing and comfortable Chest Chest palpation & inspection: normal inspection of the chest and normal palpation of entire chest wall Breast/axilla inspection: normal inspection of the breasts and normal inspection of the axillae Breast/axilla palpation: normal palpation of the breasts, normal palpation of th e axillae and no axillary lymphadenopathy Resp Effort & Inspection: normal respiratory effort Auscultation: clear to auscultation bilaterally Percussion: percussion normal Cardio Palpation: normal PMI Rate: regular rate Rhythm: regular rhythm Heart sounds: no murmurs and no rubs Peripheral pulses: Peripheral pulses 2+ throughout GI Inspection: Yes normal to inspection Palpation (GI): Soft to palpation, nontender, no guarding, not rigid and No hepatosplenomegaly present Percussion: Yes normal to percussion Auscultation: normal bowel sounds Rectal Exam - Female: deferred General: Yes bladder normal to palpation External Female Exam: No lesion Speculum Exam - Vagina: normal appearance of the vagina, normal palpation, normal vaginal discharge and not erythematous Speculum Exam - Cervix: normal appearance of the cervix and normal palpation Bimanual exam- vagina & uterus: normal bimanual exam, normal palpation, uterine size normal, bladder normal to palpation, consistency normal and normal palpation Bimanual Exam- Adnexa, other: normal adnexae, no masses and no tenderness Assessment & Plan Assessment & Plan (1) Well woman exam: Comment: OMAR 1 in 2022 OMAR 2 status post LEEP cone with free margins Code(s): Z01.419 - Encounter for gynecological examination (general) (routine) without abnormal findings Category: Medical Plan: Cotesting done. Instructions given the patient to schedule next screen Mammogram in 12/18. Counseled the patient about the recommended dietary allowance of 1000 mg of Calcium & 600 IU of vitamin D. The patient was instructed to perform monthly self-breast exams and to schedule an annual exam in a year; The patient was refer to GI for screening colonoscopy. Instructed the patient to call our office back in case a referral appointment is not scheduled, missed or canceled so that we will assist on rescheduling another appointment, the patient verbalized understanding agreed with the plan. Instructed the patient to schedule annual exam in a year (2) Abnormal uterine bleeding (AUB): Code(s): N93.9 - Abnormal uterine and vaginal bleeding, unspecified Category: Medical Plan: Co testing done, GC and chlamydia taken CBC, TSH, prolactin, HCG, and pelvic ultrasound ordered. Discussed with the patient the different causes of abnormal bleeding including thyroid disorders, uterine and ovarian pathology, endometrial hyperplasia, carcinoma and other potential causes. Discussed with the patient the work up including CBC (to r/o anemia), TSH, pelvic Ultrasound, endometrial biopsy to r/o endometrial pathology. All questions answered and the patient verbalized understanding. Instructed the patient to schedule an appointment for an endometrial biopsy in 2 weeks. Orders: Orders TSH reflex Free T4 Today N93.9 - Abnormal uterine and vaginal bleeding, unspecified Prolactin Today N93.9 - Abnormal uterine and vaginal bleeding, unspecified Complete Blood Count no Diff Today N93.9 - Abnormal uterine and vaginal bleeding, unspecified HCG Quantitative Today N93.9 - Abnormal uterine and vaginal bleeding, uns pecified US pelvic and transvaginal Today N93.9 - Abnormal uterine and vaginal bleeding, unspecified Referrals Gastroenterology Referral Z12.11 - Encounter for screening for malignant neoplasm of colon Coding Level of Care Code Est Pt Prev Care 40-64y(09063) Diagnoses Well woman exam Z01.419 Abnormal uterine bleeding (AUB) N93.9
[2023-08-31 10:21] VITALS: BP 116/62; BMI 26.8
== END 2023-08-31 10:45 | disposition home or self-care (01) ==
PROVIDERS: Visit Provider Obstetrics & Gynecology
DX: Z01.419 Encounter for gynecological examination (general) (routine) without abnormal findings (principal); N93.9 Abnormal uterine and vaginal bleeding, unspecified
CPT/HCPCS: 99396

== ENCOUNTER 2023-09-07 11:24 | Outpatient (REF) | payer OTHER, SELFPAY ==
--- NOTE | ~2023-09-07 | US_ITS ---
EXAMINATION: ULTRASOUND PELVIC, COMPLETE CLINICAL INFORMATION: Abnormal uterine and vaginal bleeding. COMPARISON: None. TECHNIQUE: Pelvic ultrasound was performed using transvaginal and transabdominal technique without spectral doppler. FINDINGS: The uterus is of normal size and echogenicity measuring 8.7 x 4.4 x 5.7 cm. The uterus appears normal. An IUD appears appropriately position. The IUD obscures the endometrium. The right ovary measures 2.2 x 1.4 x 1.6 cm, volume 2.3 mL. The right ovary appears normal. The left ovary measures 4.2 x 2.9 x 3.3 cm, volume 20.6 mL. Thinly septated 2.7 cm cyst in the left ovary. No color flow is seen in the septation. In a premenopausal woman this is considered a benign cyst and no follow-up imaging is recommended. There is no pelvic free fluid. US/US pelvic and transvaginal IMPRESSION: IUD appears appropriately positioned. No explanation for abnormal uterine and vaginal bleeding.
== END 2023-09-07 11:25 | disposition home or self-care (01) ==
LOC: HO.US 11:24
PROVIDERS: PCP Internal Medicine; Visit Provider Obstetrics & Gynecology
DX: N93.9 Abnormal uterine and vaginal bleeding, unspecified (principal)
CPT/HCPCS: 76830; 76856

== ENCOUNTER 2023-10-05 12:15 | Outpatient (AMB) | payer OTHER, SELFPAY ==
--- NOTE | 2023-10-05 12:25 | MHC.OFFVIS ---
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 Information Interpreted: non-clinical & clinical Mate Fishing Vessel: Mate Fishing Vessel Present (Aidyn) Allergies No Known Allergies Allergy (Verified 10/05/23 12:33) Post menopausal: No Patient : No HPI Comments Details: Presenting for endometrial biopsy for AUB and endometrial cells seen on Pap smear [facility] Medical History Overweight (BMI 25.0-29.9) Dysplasia of cervix, low grade (OMAR 1) Surgical History History of loop electrical excision procedure (LEEP) H/O knee surgery H/O hand surgery Family History Maternal Grandmother Breast CA Maternal Aunt Breast CA Social History Housing: House Alcohol intake: current Alcohol intake frequency: holidays/special occasions only Alcohol type: wine Patient Tobacco Use Status: Never used Tobacco e-Cigarette/Vaping Use: Never Used Second Hand Smoke Exposure: No service: No Current occupational status: employed Current occupational exposures/hazards: No Cognitive needs: No Hearing needs: No Vision needs: No Female Reproductive History Menstrual Age of Menarche: 11 control method: copper IUCD Date of last pap smear: 09/02/23 Office Procedures Endometrial Biopsy Details: The patient was counseled regarding the indication and benefits of endometrial sampling to rule out endometrial pathology including not limited to endometrial hyperplasia or endometrial cancer and others; The alternatives (Either do nothing vs. hysteroscopy D&C) & the risks were discussed with the patient including but not limited: pain, uterine perforation, bleeding, infection, possible injury to bladder, bowel, ureter, possible need for blood transfusion with all its possible risks. The patient verbalized understanding all questions answered and signed consent. Urine test done in the office was negative The patient was placed into the dorsal lithotomy position; a speculum was inserted in the vagina. Using aseptic technique for the procedure, the cervix was cleansed with Betadine. The anterior lip of the cervix was grasped with a single tooth tenaculum. The uterus was sounded to 7 cm with a 4 mm Pipelle was used. Tissues samples were obtained and placed in formalin, in a patient labeled container and sent to the pathology department. At the end of the procedure, there was minimal bleeding noted The patient tolerated the procedure well and was discharged in good condition with the following instructions: Nothing in the vagina until the bleeding stops. No sex until the bleeding stops, to call if any of the following occurs: fever (>100.4), flu-like symptoms, abdominal pain, heavy bleeding, four smelling vaginal discharge. The patient was instructed to schedule a Follow up appointment in 2 weeks to discuss pathology results of the biopsy and treatment options. This note was generated with a voice recognition program. Some errors may have been overlooked during the review of this note. Sometimes these errors may affect the content or meaning of a given sentence. [id number] Biopsy Assessment & Plan Assessment & Plan (1) Abnormal uterine bleeding (AUB): Code(s): N93.9 - Abnormal uterine and vaginal bleeding, unspecified Category: Medical Plan: EMB done, see procedure note (2) Unexplained endometrial cells on cervical Pap smear: Code(s): R87.618 - Other abnormal cytological findings on specimens from cervix uteri Category: Medical Plan: EMB done, see procedure note Orders: Orders AMB Endometrial Biopsy Today N93.9 - Abnormal uterine and vaginal bleeding, unspecified, R87.618 - Other abnormal cytological findings on specimens from cervix uteri Coding Level of Care Code Procedure Only Diagnoses Abnormal uterine bleeding (AUB) N93.9 Unexplained endometrial cells on cervical Pap smear R87.618 CPT Codes Endometrial Biopsy - CPT: 15378-Favdoebdowd Biopsy ([id number])
[2023-10-05 12:26] VITALS: BP 122/74; BMI 26.8
== END 2023-10-05 12:53 | disposition home or self-care (01) ==
PROVIDERS: PCP Internal Medicine; Visit Provider Obstetrics & Gynecology
DX: N93.9 Abnormal uterine and vaginal bleeding, unspecified (principal); R87.618 Other abnormal cytological findings on specimens from cervix uteri; Z32.02 Encounter for pregnancy test, result negative
CPT/HCPCS: 58100

== ENCOUNTER 2023-10-05 12:15 | Outpatient (REF) | payer OTHER, SELFPAY | END 2023-10-05 12:16 | disposition home or self-care (01) | LOC: HO.LNP 12:15 | PROVIDERS: PCP Internal Medicine; Visit Provider Obstetrics & Gynecology | DX: N93.9 Abnormal uterine and vaginal bleeding, unspecified (principal); R87.618 Other abnormal cytological findings on specimens from cervix uteri | CPT/HCPCS: 58100; 81025; 88305 ==

== ENCOUNTER 2023-10-05 12:58 | Outpatient (REF) | payer OTHER, SELFPAY ==
[2023-10-05 13:50] LABS: Hematocrit 35.4 % (37.0-47.0); Hemoglobin 12.8 g/dl (12.0-16.0); Mean Corpuscular HGB Conc 36.2 g/dl (31.0-35.0); Mean Corpuscular Volume 88.5 fL (80.0-98.0); Mean Platelet Volume 9.1 fL (9.4-12.3); Platelet Count 172 X10*3/uL (160-400); Red Cell Distribution Width 12.9 % (11.0-16.0); White Blood Count 4.9 X10*3/uL (4.8-10.8)
[2023-10-05 15:20] LABS: HCG Quantitative < 2 mIU/mL; TSH reflex Free T4 2.22 uIU/mL (0.32-4.0)
[2023-10-06 09:14] LABS: Prolactin 7.1 ng/mL
== END 2023-10-05 12:59 | disposition home or self-care (01) ==
LOC: HO.LAB 12:58
PROVIDERS: PCP Internal Medicine; Visit Provider Obstetrics & Gynecology
DX: N93.9 Abnormal uterine and vaginal bleeding, unspecified (principal)
CPT/HCPCS: 36415; 84146; 84443; 84702; 85027

== ENCOUNTER 2023-11-17 11:17 | Outpatient (AMB) | payer OTHER, SELFPAY ==
--- NOTE | 2023-11-17 11:19 | MHC.OFFVIS ---
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 The following workup was done.: H&H= 12.8/35.4 TSH, hCG, GC and chlamydia were negative. Endometrial biopsy pathology showed the following: Endometrium, biopsy: - Disordered proliferative endometrium; no atypia or hyperplasia identified. - Small fragment of endocervical tissue within normal limits. Co testing was negative with endometrial cells present Mammogram was BI-RADS 2 in 12/17 Pelvic ultrasound showed the following: The uterus is of normal size and echogenicity measuring 8.7 x 4.4 x 5.7 cm. The uterus appears normal. An IUD appears appropriately position. The IUD obscures the endometrium. The right ovary measures 2.2 x 1.4 x 1.6 cm, volume 2.3 mL. The right ovary appears normal. The left ovary measures 4.2 x 2.9 x 3.3 cm, volume 20.6 mL. Thinly septated 2.7 cm cyst in the left ovary. No color flow is seen in the septation. In a premenopausal woman this is considered a benign cyst and no follow-up imaging is recommended. There is no pelvic free fluid. [facility] Medical History Overweight (BMI 25.0-29.9) Dysplasia of cervix, low grade (OMAR 1) Surgical History History of loop electrical excision procedure (LEEP) H/O knee surgery H/O hand surgery Family History Maternal Grandmother Breast CA Maternal Aunt Breast CA Social History Housing: House Alcohol intake: current Alcohol intake frequency: holidays/special occasions only Alcohol type: wine Patient Tobacco Use Status: Never used Tobacco e-Cigarette/Vaping Use: Never Used Second Hand Smoke Exposure: No service: No Current occupational status: employed Current occupational exposures/hazards: No Cognitive needs: No Hearing needs: No Vision needs: No Female Reproductive History Menstrual Age of Menarche: 11 Review of Systems Const All systems reviewed & are unremarkable except as noted in HPI and below Reports as per HPI and Reports no additional complaints GI Reports no additional complaints Reports no additional complaints Physical Exam Vital Signs: Last Vital Signs BP 120/74 11/17/23 11:23 BMI result Body Mass Index 26.5 Assessment & Plan Assessment & Plan (1) Abnormal uterine bleeding (AUB): Comment: ParaGard IUD Code(s): N93.9 - Abnormal uterine and vaginal bleeding, unspecified Category: Medical Plan: Discussed with the patient the results of the work up done and options of treatment , the patient is said to proceed with expectant management . Instructions given the patient to call in case of recurrence of her abnormal uterine bleeding. All questions answered, the patient verbalized understanding (2) Unexplained endometrial cells on cervical Pap smear: Code(s): R87.618 - Other abnormal cytological findings on specimens from cervix uteri Category: Medical Plan: Discussed with the patient the results the endometrial biopsy pathology, the patient was reassured. (3) Complex ovarian cyst: Code(s): N83.299 - Other ovarian cyst, unspecified side Category: Medical Plan: Discussed with the patient the complex ovarian cyst by ultrasound. Discussed with the patient the Ultrasound findings, the main limitation of transvaginal ultrasonography alone as a diagnostic tool to distinguish benign from malignant masses relates to its lack of specificity and low positive predictive value for cancer. The differential diagnosis discussed with the patient includes the following but not limited to: benign and malignant gynecological and non-gynecological causes. Laboratory evaluation include UPT and GC/CT , serum tumor marker CA 125 . Will repeat ultrasound in 3 weeks. Instructions given the patient to schedule pelvic ultrasound and a follow-up appointment. All questions were answered & the patient verbalized understanding and agreed with the plan. Orders: Orders US pelvic and transvaginal 3 Weeks N83.299 - Other ovarian cyst, unspecified side Coding Level of Care Code Est Pt Level 3 (10646) Diagnoses Abnormal uterine bleeding (AUB) N93.9 Unexplained endometrial cells on cervical Pap smear R87.618 Complex ovarian cyst N83.299
[2023-11-17 11:23] VITALS: BP 120/74; BMI 26.5
== END 2023-11-17 11:44 | disposition home or self-care (01) ==
PROVIDERS: PCP Internal Medicine; Visit Provider Obstetrics & Gynecology
DX: N93.9 Abnormal uterine and vaginal bleeding, unspecified (principal); R87.618 Other abnormal cytological findings on specimens from cervix uteri; N83.299 Other ovarian cyst, unspecified side
CPT/HCPCS: 99213

== ENCOUNTER → 2023-11-17 11:17 | Outpatient (BNVA) | payer OTHER, SELFPAY | PROVIDERS: PCP Internal Medicine; Visit Provider Obstetrics & Gynecology | DX: N93.9 Abnormal uterine and vaginal bleeding, unspecified (principal); R87.618 Other abnormal cytological findings on specimens from cervix uteri; N83.299 Other ovarian cyst, unspecified side | CPT/HCPCS: 99212 ==

== ENCOUNTER 2023-12-07 12:11 | Outpatient (REF) | payer OTHER, SELFPAY ==
--- NOTE | ~2023-12-07 | MM_ITS ---
EXAMINATION: MM SCREENING DIGITAL BREAST TOMOSYNTHESIS, BILATERAL CLINICAL INFORMATION: Screening. Asymptomatic. COMPARISON: Mammography: Comparison is made to available prior mammograms. TECHNIQUE: Digital breast tomosynthesis is performed in both the craniocaudal and mediolateral oblique views along with computer-aided detection (CAD). Synthesized 2D images are generated from the tomosynthesis. FINDINGS: The breasts are heterogeneously dense, which may obscure small masses (ACR BI-RADS breast composition Category c). There are no significant masses, abnormal calcifications, or other abnormalities. MM/MM tomosynthesis screening BI IMPRESSION: No mammographic evidence of malignancy. ASSESSMENT: BI-RADS BI-RADS 1 - Negative RECOMMENDATION: Routine annual mammography screening. 1 year F/U This examination should not preclude the clinical evaluation of a suspicious palpable abnormality. This patient's information was entered into a reminder system with a target due date for their next mammogram. Electronically signed by: Katerina Albrecht DO 12/31/2023 04:47 PM EDT
== END 2023-12-07 12:12 | disposition home or self-care (01) ==
LOC: HO.MAMMO 12:11
PROVIDERS: PCP Internal Medicine; Visit Provider Internal Medicine
DX: Z12.31 Encounter for screening mammogram for malignant neoplasm of breast (principal)
CPT/HCPCS: 77063; 77067

== ENCOUNTER → 2023-12-07 12:15 | Outpatient (BNV) | payer OTHER, SELFPAY | PROVIDERS: PCP Internal Medicine; Visit Provider Internal Medicine | DX: Z12.31 Encounter for screening mammogram for malignant neoplasm of breast (principal) | CPT/HCPCS: 77063; 77067 ==

== ENCOUNTER 2023-12-07 13:24 | Outpatient (REF) | payer OTHER, SELFPAY ==
--- NOTE | ~2023-12-07 | US_ITS ---
EXAM: Pelvic Ultrasound CLINICAL INDICATION: Ovarian cyst COMPARISON: Pelvic ultrasound September 07, 2023 TECHNIQUE: The pelvis was evaluated using transabdominal and transvaginal imaging. FINDINGS: The uterus measures 7.9 x 3.7 x 5.4 cm in longitudinal by AP by transverse dimension. Endometrial stripe is obscured by IUD. IUD appears in appropriate position. Nabothian cysts are noted within the cervix. The left ovary measures approximately 1.8 x 1.4 x 2.1 cm and is normal. The right ovary measures approximately 4.4 x 2.9 x 2.9 cm and contains a 2.5 cm cyst which contains internal echogenicity.. There is no free fluid in the pelvis. US/US pelvic and transvaginal IMPRESSION: 1. IUD in appropriate position. 2. 2.5 cm complex right ovarian cyst. Electronically signed by: Gopal Black MD 12/24/2023 07:02 AM EDT
== END 2023-12-07 13:25 | disposition home or self-care (01) ==
LOC: HO.US 13:24
PROVIDERS: PCP Internal Medicine; Visit Provider Obstetrics & Gynecology
DX: N83.299 Other ovarian cyst, unspecified side (principal)
CPT/HCPCS: 76830; 76856

== ENCOUNTER 2023-12-15 14:35 | Outpatient (AMB) | payer OTHER, SELFPAY ==
[2023-12-15 14:40] VITALS: BP 114/69; PULSE 63; BMI 27.8
--- NOTE | 2023-12-15 14:40 | A.OFFVIS_ITS ---
Vital Signs 12/15/23 14:40 Height 5 ft 4 in Weight 162 lb 4.163 oz BMI 27.8 BP 114/69 Blood Pressure Location Lt brachial Position Sitting Pulse 63 Intake Visit Reasons: Colonoscopy Screening Intake Note: Patient in office today as a new patient for colonoscopy screening. CC: Patient denies having any GI concerns or symptoms today. 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 She is referred by Asia Buckley PMX High cholesterol Overweight Abnormal uterine bleeding Cervical dysplasia * SURGICAL HISTORY LEEP procedure Knee surgery - arthroscopic Hand surgery - hand fx with hardware * ALLERGIES: NKDA * [facility]: Laboratory Tests 12/27/21 10/05/23 10:09 13:13 WBC 4.9 Hgb 12.8 Hct 35.4 L MCV 88.5 MCH 32.0 Plt Count 172 Estimated GFR > 60 Total Bilirubin 0.9 AST 23 ALT 25 Alkaline Phosphatase 38 L TSH 2.22 TODAY'S VISIT THis is her first colonoscopy She denies any bowel or upper GI problems. She denies any cardiac or respiratory problems She is naive to anesthesia and sedation. No ID problems. There is no known FHX of CRC or polyps. [facility] Medical History Adult general medical exam Bacterial vaginosis LGSIL on Pap smear of cervix Dysplasia of cervix, low grade (OMAR 1) ASCUS with positive high risk HPV Well woman exam OMAR II (cervical intraepithelial neoplasia II) Family planning Encounter for IUD insertion IUD check up Unexplained endometrial cells on cervical Pap smear Overweight (BMI 25.0-29.9) Dysplasia of cervix, low grade (OMAR 1) Surgical History History of loop electrical excision procedure (LEEP) H/O knee surgery H/O hand surgery Family History (Updated 01/11/24 @ 09:18 by Asia King MD) Maternal Grandmother Breast CA Maternal Aunt Breast CA Mother Dementia Social History (Updated 01/11/24 @ 09:18 by Asia King MD) Housing: House Alcohol intake: current Alcohol intake frequency: a few times a month Alcohol type: wine Patient Tobacco Use Status: Never used Tobacco e-Cigarette/Vaping Use: Never Used Second Hand Smoke Exposure: No service: No Current occupational status: employed Current occupational exposures/hazards: No Cognitive needs: No Hearing needs: No Vision needs: No Female Reproductive History Menstrual Age of Menarche: 11 Review of Systems Const Denies fatigue, Denies fever(s), Denies night sweats, Denies poor appetite and Denies weight loss ENT Reports Normal hearing present, Denies dental pain, Denies dysphagia, Denies hearing loss, Denies mouth pain, Denies odynophagia, Denies throat swelling, Denies tongue swelling and Reports other (Dentition adequate) Card Reports no additional complaints Resp Reports no additional complaints GI Details: Denies abdominal pain, Denies melena, Denies bloating, Denies hematochezia, Denies constipation, Denies GI cramping, Denies dysphagia, Denies excessive flatus, Denies early satiety, Denies heartburn, Denies diarrhea, Denies nausea, Denies odynophagia, Denies vomiting and Denies hematemesis Skin/Breast Denies pruritus, Denies lesions, Denies rash and Denies jaundice Neuro Reports Normal hearing present and Denies Abnormal speech present Endo Denies fatigue Aller/Immun Denies throat swelling and Denies tongue swelling Physical Exam Vital Signs: Last Vital Signs Pulse 63 12/15/23 14:40 BP 114/69 12/15/23 14:40 BMI result Body Mass Index 27.8 Const General: cooperative, no acute distress, well developed and well groomed Nutritional Appearance: average body habitus and well nourished Orientation/consciousness: oriented to person, oriented to place and oriented to time Limitations: No language barrier HEENT Head: Yes normocephalic and Yes atraumatic Eyes General: appearance normal, both eyes and all related structures Pupils: Equal, round and reactive pupils present Neck Neck: Yes normal visual inspection and Yes no lymphadenopathy Thyroid: Thyroid normal Resp Effort & Inspection: normal respiratory effort and able to speak in complete sentences Auscultation: clear to auscultation bilaterally Cardio Rate: regular rate Rhythm: regular rhythm Heart sounds: Normal, physiologic split S2 sound present Peripheral pulses: radial pulses present and posterior tibial pulses present GI Inspection: No distended and No Abdominal panniculus present Palpation (GI): Soft to palpation, nontender, no guarding, not rigid and No hepatosplenomegaly present Percussion: Yes normal to percussion Auscultation: normal bowel sounds Rectal Exam - Female: deferred Skin General skin exam: no rashes or lesions noted, turgor normal, skin not dry, no jaundice, No spider nevi and no striae Rashes: no rashes Nails: normal Neuro General: oriented to person, oriented to place and oriented to time Cranial nerves: Yes Equal, round and reactive pupils present and Yes Normal hearing present Speech: No Abnormal speech present Extrem General: Yes normal to inspection, No clubbing, No cyanosis and No edema Psych Appearance: grossly normal and well kempt Mental Status: mental status grossly normal Speech and movement: Normal speech and movement present Affect: normal affect Attitude: cooperative Thought process: Normal thought process present and not confabulating Thought content: Normal thought content present Insight: Good insight present (Psych) Judgement: Good judgement present (Psych) Assessment & Plan Assessment & Plan (1) Pre-op examination: Code(s): Z01.818 - Encounter for other preprocedural examination Category: Medical Plan THis is her first colonoscopy She denies any bowel or upper GI problems. She denies any cardiac or respiratory problems She is naive to anesthesia and sedation. No ID problems. There is no known FHX of CRC or polyps. Orders: Orders Colonoscopy - GI Use Only 12/15/23 Z01.818 - Encounter for other preprocedural examination Medications: New sodium,potassium,mag sulfates 17.5-3.13-1.6 gram (Suprep Bowel Prep Kit) 480 mL orally; FOR COLONOSCOPY PREP 354 mL 0RF Coding Level of Care Code New Pt Level 3 (07176) Diagnoses Pre-op examination Z01.818
== END 2023-12-15 15:09 | disposition home or self-care (01) ==
PROVIDERS: PCP Internal Medicine; Visit Provider Nurse Practitioner
DX: Z01.818 Encounter for other preprocedural examination (principal)
CPT/HCPCS: 99203

== ENCOUNTER → 2023-12-15 14:35 | Outpatient (BNVA) | payer OTHER, SELFPAY | PROVIDERS: PCP Internal Medicine; Visit Provider Nurse Practitioner | DX: Z01.818 Encounter for other preprocedural examination (principal) | CPT/HCPCS: 99202 ==

== ENCOUNTER 2023-12-29 11:34 | Outpatient (AMB) | payer OTHER, SELFPAY ==
[2023-12-29 11:35] VITALS: BMI 27.6
--- NOTE | 2023-12-29 11:35 | A.OFFVIS_ITS ---
Vital Signs 12/29/23 11:35 Height 5 ft 4 in Weight 160 lb 14.999 oz BMI 27.6 Intake Visit Reasons: ultra sound follow up Allergies No Known Allergies Allergy (Verified 12/15/23 14:44) HPI Comments Details: Presenting for ultrasound follow-up regarding previously seen left complex ovarian cyst on ultrasound done in 09/17. Ultrasound done in 12/18 showed the following: The uterus measures 7.9 x 3.7 x 5.4 cm in longitudinal by AP by transverse dimension. Endometrial stripe is obscured by IUD. IUD appears in appropriate position. Nabothian cysts are noted within the cervix. The left ovary measures approximately 1.8 x 1.4 x 2.1 cm and is normal. The right ovary measures approximately 4.4 x 2.9 x 2.9 cm and contains a 2.5 cm cyst which contains internal echogenicity.. There is no free fluid in the pelvis. [facility] Medical History Adult general medical exam Bacterial vaginosis LGSIL on Pap smear of cervix Dysplasia of cervix, low grade (OMAR 1) ASCUS with positive high risk HPV Well woman exam OMAR II (cervical intraepithelial neoplasia II) Family planning Encounter for IUD insertion IUD check up Unexplained endometrial cells on cervical Pap smear Overweight (BMI 25.0-29.9) Dysplasia of cervix, low grade (OMAR 1) Surgical History History of loop electrical excision procedure (LEEP) H/O knee surgery H/O hand surgery Family History Maternal Grandmother Breast CA Maternal Aunt Breast CA Social History Housing: House Alcohol intake: current Alcohol intake frequency: holidays/special occasions only Alcohol type: wine Patient Tobacco Use Status: Never used Tobacco e-Cigarette/Vaping Use: Never Used Second Hand Smoke Exposure: No service: No Current occupational status: employed Current occupational exposures/hazards: No Cognitive needs: No Hearing needs: No Vision needs: No Female Reproductive History Menstrual Age of Menarche: 11 Review of Systems Const All systems reviewed & are unremarkable except as noted in HPI and below Reports as per HPI and Reports no additional complaints GI Reports no additional complaints Reports no additional complaints Physical Exam Vital Signs: BMI result Body Mass Index 27.6 Assessment & Plan Assessment & Plan (1) Complex ovarian cyst: Comment: right Code(s): N83.299 - Other ovarian cyst, unspecified side Category: Medical Plan: Discussed with the patient the complex ovarian cyst by ultrasound. Discussed with the patient the Ultrasound findings, the main limitation of transvaginal ultrasonography alone as a diagnostic tool to distinguish benign from malignant masses relates to its lack of specificity and low positive predictive value for cancer. The differential diagnosis discussed with the patient includes the following but not limited to: benign and malignant gynecological and non-gynecological causes. Laboratory evaluation include UPT and GC/CT , serum tumor marker CA 125 . Discussed with the patient options of treatment including laparoscopy ovarian cystectomy/oophorectomy vs. expectant management with repeat US in repeating pelvic US in 6-12 weeks from previous US. If the ovarian complex cyst is persistent larger and / or more complex looking, will refer to gynecologic Oncology. All pros, cons, risks and benefits of each approach were discussed with the patient including but not limited to a delay in the diagnosis and treatment of ovarian cancer affecting the prognosis; The patient decided to go ahead with expectant management. Instructions given the patient to schedule a 3 months follow-up ultrasound appointment. All questions were answered & the patient verbalized understanding and agreed with the plan. (2) Complex cyst of left ovary: Comment: resolved Code(s): N83.292 - Other ovarian cyst, left side Category: Medical Plan: Discussed with the patient ultrasound findings showing the previously identified complex cyst has resolved. The patient was instructed to call if symptoms recur. All questions were answered the patient verbalized understanding. Orders: Orders US pelvic and transvaginal 3 Months N83.299 - Other ovarian cyst, unspecified side Coding Level of Care Code Est Pt Level 3 (65985) Diagnoses Complex ovarian cyst N83.299 Complex cyst of left ovary N83.292
== END 2023-12-29 11:53 | disposition home or self-care (01) ==
LOC: HO.HWS 11:34
PROVIDERS: PCP Internal Medicine; Visit Provider Obstetrics & Gynecology
DX: N83.299 Other ovarian cyst, unspecified side (principal); N83.292 Other ovarian cyst, left side
CPT/HCPCS: 99213

== ENCOUNTER → 2023-12-29 11:34 | Outpatient (BNVA) | payer OTHER, SELFPAY | PROVIDERS: PCP Internal Medicine; Visit Provider Obstetrics & Gynecology | DX: N83.292 Other ovarian cyst, left side (principal) | CPT/HCPCS: 99212 ==

== ENCOUNTER 2024-01-11 09:03 | Outpatient (AMB) | payer OTHER, SELFPAY ==
--- NOTE | 2024-01-11 09:04 | MHC.PC.OV ---
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 Accompanied by: Self / Same As Patient Allergies No Known Allergies Allergy (Verified 01/11/24 09:14) Medication List - Last Reconciled 01/11/24 by Asia King MD copper (ParaGard T 380A) intrauterine sodium,potassium,mag sulfates 17.5-3.13-1.6 gram (Suprep Bowel Prep Kit) 480 mL orally; FOR COLONOSCOPY PREP Tobacco use date assessed: 01/11/24 Dental Screening Dental Screen Date: 01/11/24 Did you have a dental visit in the last 12 months?: Yes Did you have a dental problem in the last 6 months where you did not have access to dental care?: No Was dental information given to patient?: Patient has dentist HPI HPI Comments History of Present Illness Details This is a 43-year-old female that comes for her physical exam. Mammogram done 2023 was normal. Pap smear done 2023 then had a biopsy with OBGYN. Has colonoscopy scheduled. No chest pain or shortness on breath. No acute complaints. [facility] Medical History (Updated 01/11/24 @ 09:25 by Asia King MD) Adult general medical exam Bacterial vaginosis LGSIL on Pap smear of cervix Dysplasia of cervix, low grade (OMAR 1) ASCUS with positive high risk HPV Well woman exam OMAR II (cervical intraepithelial neoplasia II) Family planning Encounter for IUD insertion IUD check up Unexplained endometrial cells on cervical Pap smear Overweight (BMI 25.0-29.9) Dysplasia of cervix, low grade (OMAR 1) Surgical History History of loop electrical excision procedure (LEEP) H/O knee surgery H/O hand surgery Family History (Updated 01/11/24 @ 09:18 by Asia King MD) Maternal Grandmother Breast CA Maternal Aunt Breast CA Mother Dementia Social History (Updated 01/11/24 @ 09:18 by Asia King MD) Housing: House Alcohol intake: current Alcohol intake frequency: a few times a month Alcohol type: wine Patient Tobacco Use Status: Never used Tobacco e-Cigarette/Vaping Use: Never Used Second Hand Smoke Exposure: No service: No Current occupational status: employed Current occupational exposures/hazards: No Cognitive needs: No Hearing needs: No Vision needs: No Female Reproductive History Menstrual Age of Menarche: 11 Questionnaire PHQ-9 Over the last 2 weeks, how often have you been bothered by any of the following problems? 1. Little interest or pleasure in doing things: not at all 2. Feeling down, depressed, or hopeless: not at all 3. Trouble falling or staying asleep, or sleeping too much: not at all 4. Feeling tired or having little energy: not at all 5. Poor appetite or overeating: not at all 6. Feeling bad about yourself - or that you are a failure or have let yourself or your family down: not at all 7. Trouble concentrating on things, such as reading the newspaper or watching television: not at all 8. Moving or speaking so slowly that other people could have noticed. Or the opposite - being so fidgety or restless that you have been moving around a lot more than usual: not at all 9. Thoughts that you would be better off or of hurting yourself in some way: not at all Total score: 0 Depression Screening Interpretation: Negative Depression Screening Done: Yes 81995 - PHQ-9 Billing: Yes Source: Developed by Drs. Seferino Solano, Cathy Merchant, Joshua Nj and colleagues, with an educational johnathon from [employer]. Thrive Questionnaire Date Thrive assessed: 01/11/24 I am a: Patient What is your living situation today?: I have a steady place to live Within the past 12 months, did the food you bought not last and you didn't have the money to get more?: Never true Within the past 12 months, did you worry whether your food would run out before you got money to buy more?: Never true Do you have trouble paying for medicines?: No Do you have trouble getting transportation to medical appointments?: No Do you have trouble paying your heating and electricity bill?: No Do you have trouble taking care of your child, family member or friend?: No Do you have trouble with day-to-day activities such as bathing, preparing meals, shopping, managing finances, etc.?: No Are you currently unemployed and looking for a job?: No Are you interested in more education?: No Please select the resources that you would like help with: None Currently or been in a relationship where the following occur: No concerns reported THRIVE Score: 0 AUDIT C Alcohol Use Questionnaire (AUDIT-C) 1. How often do you have a drink containing alcohol?: 2-4 times a month 2. How many drinks containing alcohol do you have on a typical day when you are drinking?: 1 or 2 3. How often do you have six or more drinks on one occasion?: Never Total Score: 2 Score Reviewed/Action Taken: No MAURILIO-7 AMB Questionnaire MAURILIO-7 Date MAURILIO - 7 assessed: 01/11/24 Feeling nervous, anxious, or on edge: 0 = Not at all Not being able to stop or control worryin = Not at all Worrying too much about different things: 0 = Not at all Trouble relaxin = Not at all Being so restless that it is hard to sit still: 0 = Not at all Becoming easily annoyed or irritable: 0 = Not at all Feeling afraid as if something awful might happen: 0 = Not at all Total MAURILIO-7 score (0-4 normal; 5-9 mild; 10-14 moderate; 15-21 severe): 0 Source: Developed by Drs. Seferino Solano, Cathy Merchant, Joshua Nj and colleagues, with an educational johnathon from [employer]. MAURILIO-7 Assessment Billing MAURILIO-7 Assessment Tool: MAURILIO-7 Assessment 15014 Review of Systems Const All systems reviewed & are unremarkable except as noted in HPI and below Card Denies chest pain at rest, Denies chest pain with activity, Denies edema, Denies irregular heart rhythm, Denies claudication, Denies dyspnea, Denies dyspnea on exertion, Denies orthopnea, Denies paroxysmal nocturnal dyspnea and Denies slow heart rate Resp Denies cough, Denies dyspnea and Denies dyspnea on exertion GI Denies abdominal pain, Denies change in bowel habits, Denies excessive flatus, Denies nausea and Denies vomiting Denies urinary incontinence, Denies urinary hesitancy and Denies urinary urgency Musc Denies atrophy, Denies deformity and Denies limited range of motion Skin/Breast Denies bleeding lesions, Denies changing lesions and Denies rash Physical exam (Primary Care) Vital Signs: Last Vital Signs BP 116/70 01/11/24 09:05 BMI result Body Mass Index 28.0 Tobacco/Smoking Status: Tobacco use Status Tobacco use date assessed 01/11/24 01/11/24 09:09 Patient Tobacco Use Status Never used Tobacco 01/11/24 09:09 e-Cigarette/Vaping Use Never Used 01/11/24 09:09 PHQ-9: PHQ-9 Score PHQ-9: Total score 0 01/11/24 09:09 Depression Screening Interpretation: Negative Thrive Assessment: Date of Thrive Assessment Date Thrive assessed 01/11/24 01/11/24 09:09 Currently or been in a relationship where the following occur: No concerns reported HENMT Head: Yes normal to inspection, Yes normocephalic and Yes atraumatic Ears: external ears normal Eyes General: appearance normal, both eyes and all related structures Eyelids: Yes eyelids normal Conjunctivae: conjunctivae normal Neck Neck: Yes normal visual inspection and Yes supple Resp Effort & Inspection: normal respiratory effort Auscultation: clear to auscultation bilaterally Cardio Jugular venous distension: no JVD Rate: regular rate Rhythm: regular rhythm Heart sounds: S1 normal heart sound present and S2 normal heart sound present GI Inspection: Yes normal to inspection Palpation (GI): Soft to palpation and nontender Auscultation: normal bowel sounds Skin General skin exam: no rashes or lesions noted Neuro General: no focal motor deficits Extrem General: Yes full ROM Psych Appearance: grossly normal Assessment and Plan Assessment & Plan (1) Physical exam: Code(s): Z00.00 - Encounter for general adult medical examination without abnormal findings Plan: Repeat in a year. Orders: Orders Lipid Panel Today E78.5 - Hyperlipidemia, unspecified Comprehensive [place]. Panel Fast Today Z00.00 - Encounter for general adult medical examination without abnormal findings Coding Level of Care Code Est Pt Prev Care 40-64y(80101) Diagnoses Physical exam Z00.00 Additional Codes MAURILIO-7 Assessment Billing - MAURILIO-7 Assessment Tool: MAURILIO-7 Assessment 89349 ([id number]) Time Spent (min) 30
[2024-01-11 09:05] VITALS: BP 116/70; BMI 28.0
== END 2024-01-11 09:27 | disposition home or self-care (01) ==
PROVIDERS: PCP Internal Medicine; Visit Provider Internal Medicine
DX: Z00.00 Encounter for general adult medical examination without abnormal findings (principal)

== ENCOUNTER → 2024-01-11 09:03 | Outpatient (BNVA) | payer OTHER, SELFPAY | PROVIDERS: PCP Internal Medicine; Visit Provider Internal Medicine | DX: Z00.00 Encounter for general adult medical examination without abnormal findings (principal); E78.5 Hyperlipidemia, unspecified | CPT/HCPCS: 96127; 99396 ==

== ENCOUNTER 2024-03-29 11:05 | Outpatient (REF) | payer OTHER, SELFPAY | END 2024-03-29 11:06 | disposition home or self-care (01) | LOC: HO.US 11:05 | PROVIDERS: PCP Internal Medicine; Visit Provider Obstetrics & Gynecology | DX: N83.299 Other ovarian cyst, unspecified side (principal) | CPT/HCPCS: 76830; 76856 ==

== ENCOUNTER 2024-05-10 09:28 | Day surgery (SDC) | payer OTHER, SELFPAY ==
[2024-05-06 14:04] VITALS: BMI 28.0
--- NOTE | 2024-05-09 11:41 | HO.ANESPROP2 ---
HPI - Anesthesia Eval Consult details Narrative: 44yo F for Colonoscopy PMF Active Problems Active Problems: All Active Problems Physical exam (Acute) Complex cyst of left ovary (Acute) Pre-op examination (Acute) Complex ovarian cyst (Acute) Abnormal uterine bleeding (AUB) (Acute) ASCUS with positive high risk HPV cervical (Acute) Hyperlipidemia (Acute) Overweight (BMI 25.0-29.9) (Acute) Past Medical History Medical History Adult general medical exam Bacterial vaginosis LGSIL on Pap smear of cervix Dysplasia of cervix, low grade (OMAR 1) ASCUS with positive high risk HPV Well woman exam OMAR II (cervical intraepithelial neoplasia II) Family planning Encounter for IUD insertion IUD check up Unexplained endometrial cells on cervical Pap smear Overweight (BMI 25.0-29.9) Dysplasia of cervix, low grade (OMAR 1) Family History Family History (Updated 01/11/24 @ 09:18 by Asia King MD) Maternal Grandmother Breast CA Maternal Aunt Breast CA Mother Dementia Family history of problems with anesthesia: No Surgical History Surgical History History of loop electrical excision procedure (LEEP) H/O knee surgery H/O hand surgery History of Problems with Anesthesia: No Social History Social History (Updated 01/11/24 @ 09:18 by Asia King MD) Housing: House Alcohol intake: current Alcohol intake frequency: a few times a month Alcohol type: wine Patient Tobacco Use Status: Never used Tobacco e-Cigarette/Vaping Use: Never Used Second Hand Smoke Exposure: No service: No Current occupational status: employed Current occupational exposures/hazards: No Cognitive needs: No Hearing needs: No Vision needs: No Meds Allergies Allergy/AdvReac Type Severity Reaction Status Date / Time No Known Allergies Allergy Verified 01/11/24 09:14 Home Medications ?Medication ?Instructions ?Recorded ?Confirmed ?Last Taken ?Type copper 380 square mm intrauterine intrauterine 12/31/22 01/11/24 Unknown History device (ParaGard T 380A) Exam Height,Weight and Vital Signs: Height 5 ft 4 in Weight 73.936 kg Assessment and Plan Assessment Anesthesia Assessment: Chart Reviewed Final Anesthetic Review Family History of Problems with Anesthesia: No History of Problems with Anesthesia: No
[2024-05-10 09:51] LABS: UPreg QC Valid YES; Urine Pregnancy NEGATIVE (NEGATIVE)
[2024-05-10 10:06] VITALS: BMI 27.3
[2024-05-10] MEDS: Lactated Ringers 1,000 ML 100 ML IVCONT (10:09)
--- NOTE | 2024-05-10 10:09 | P.CONAN_ITS ---
[facility] Active Problems Active Problems: All Active Problems Physical exam (Acute) Complex cyst of left ovary (Acute) Pre-op examination (Acute) Complex ovarian cyst (Acute) Abnormal uterine bleeding (AUB) (Acute) ASCUS with positive high risk HPV cervical (Acute) Hyperlipidemia (Acute) Overweight (BMI 25.0-29.9) (Acute) Past Medical History Medical History Adult general medical exam Bacterial vaginosis LGSIL on Pap smear of cervix Dysplasia of cervix, low grade (OMAR 1) ASCUS with positive high risk HPV Well woman exam OMAR II (cervical intraepithelial neoplasia II) Family planning Encounter for IUD insertion IUD check up Unexplained endometrial cells on cervical Pap smear Overweight (BMI 25.0-29.9) Dysplasia of cervix, low grade (OMAR 1) Functional capacity: independent ambulation Patient : No Family History Family History Maternal Grandmother Breast CA Maternal Aunt Breast CA Mother Dementia Family history of problems with anesthesia: No Surgical History Surgical History History of loop electrical excision procedure (LEEP) H/O knee surgery H/O hand surgery History of Problems with Anesthesia: No Social History Social History Housing: House Are you a primary healthcare financial analyst to a significant other at home: No Do you presently have visiting nurse or other home services: No Alcohol intake: current Alcohol intake frequency: a few times a month Alcohol type: wine Patient Tobacco Use Status: Never used Tobacco e-Cigarette/Vaping Use: Never Used Second Hand Smoke Exposure: No Have you been hit, kicked, punched, or otherwise hurt by someone within the past year? If so, by whom?: No Are you DNR?: No Advance Directives: No Advance Directives Information Provided: Yes Recently lost weight without trying: No Nutrition Risks: No Nutritional Risk FDLMP: mid service: No Current occupational status: employed Current occupational exposures/hazards: No Cognitive needs: No Hearing needs: No Vision needs: No Meds Allergies Allergy/AdvReac Type Severity Reaction Status Date / Time No Known Allergies Allergy Verified 05/10/24 09:44 Active Medications: Current Medications Lactated Ringer's (Lr) 1,000 mls @ 100 mls/hr IVCONT .Q10H AL Last Admin: 05/10/24 10:09 Dose: 100 mls/hr Home Medications ?Medication ?Instructions ?Recorded ?Confirmed ?Last Taken ?Type copper 380 square mm intrauterine intrauterine 12/31/22 01/11/24 Unknown History device (ParaGard T 380A) Exam Height,Weight and Vital Signs: Height 5 ft 4 in Weight 72.121 kg Pertinent Lab Results Pertinent Lab Results: Laboratory Tests 05/10/24 09:30 Urine Test NEGATIVE Airway Mallampati Class: II TM Dist: >3cm Neck ROM: Full Heart: RRR Lungs: CTA Assessment and Plan Assessment Anesthesia Assessment: Anesthesia Plan Discussed and Chart Reviewed Final Anesthetic Review Family History of Problems with Anesthesia: No History of Problems with Anesthesia: No NPO: Yes ASA Class: II Final Preanesthetic Review: Consent Obtained/Reviewed and Anes Risks/Benef Reviewed Patient Risk: Low Procedure Risk: Low Anesthetic Plan Anesthetic Plan: MAC: Disposition: Standard PACU
--- NOTE | 2024-05-10 10:18 | MHC.SHP ---
Pre-Procedural Eval Section A - 24 Hr Update-Section A only Date of Service: 05/10/24 Section B - Complete if H&P > 30 days Chief Complaint: screening Details of Present Illness: l medical exam Bacterial vaginosis LGSIL on Pap smear of cervix Dysplasia of cervix, low grade (OMAR 1) ASCUS with positive high risk HPV Well woman exam OMAR II (cervical intraepithelial neoplasia II) Family planning Encounter for IUD insertion IUD check up Unexplained endometrial cells on cervical Pap smear Overweight (BMI 25.0-29.9) Dysplasia of cervix, low grade (OMAR 1) Surgical History History of loop electrical excision procedure (LEEP) H/O knee surgery H/O hand surgery Present Medications: see Short Stay Collaborative assessment Allergies: Allergies Allergy/AdvReac Type Severity Reaction Status Date / Time No Known Allergies Allergy Verified 05/10/24 09:44 Review of Systems Review of Systems Comment: Ten point ROS negative Exam Exam Comment: Gen appear: No acute distress HEENT: no icterus Chest: No overt resp distress Abd: soft, nontender, nondistended Psych: Stable affect, answering questions appropriately Neuro: A/Ox3 noted to move all extremities spontaneously Ext: no peripheral edema Plan Diagnosis/Plan: Unchanged I have reviewed the history and physical and performed a pertinent physical examination on my patient. No changes have occurred unless specified. Time Spent With Patient Time: Total time managing care of this patient today ____ minutes.
[2024-05-10 10:20] VITALS: BP 128/77; PULSE 70; RESP 18; TEMP 36.8; O2SAT 99
--- NOTE | 2024-05-10 10:51 | P.OPN-COLO_ITS ---
Colonoscopy Operative Note Operative Note Date of Service: 05/10/24 Narrative: Procedure: Colonoscopy Indication: Screening Endoscopist: Rosie Dodd MD Anesthesia Provider: Lauren Chapa MD Anesthesia type: MAC Instrument: Olympus [id number]-H190L Consent: Indication, risks vs benefits, and alternatives were discussed with the patient who gave written informed consent to proceed. EKG, pulse, pulse oximetry and blood pressure were monitored throughout the procedure. Please see anesthesia flowsheet. Procedure: The patient was brought to the procedure room and placed in the left lateral decubitus position. IV medications were administered by the anesthesia provider in attendance. A digital rectal exam was performed which was normal. A distal attachment cap was affixed to the tip of the colonoscope which was then inserted through the anus and advanced through the colon to the cecum at 75 c m,and terminal ileum. Appendiceal orifice and ileocecal valve were identified. Mucosa was carefully examined under high definition white light as the instrument was slowly withdrawn in a retrograde panoramic fashion. Retroflexion was performed in rectum. The procedure was not difficult. There were no immediate obvious complications. The quality of the prep was BBPS: 3+2+2 = adequate Withdrawal time 8 minutes. Limitations: No limitations. Findings: Mucosa: Normal to cecum and terminal ileum. Protruding lesions: * Large internal hemorrhoids without stigmata of recent bleeding. Impression: 1. Normal colon and terminal ileum mucosa 2. Internal hemorrhoids Recommendations: - Recommend a repeat colonoscopy for asymptomatic colorectal cancer screening in 10 years
[2024-05-10 10:55] VITALS: BP 94/41; PULSE 65; RESP 16; TEMP 36.6; O2SAT 97
[2024-05-10 11:10] VITALS: BP 107/55; PULSE 64; RESP 16; TEMP 36.8; O2SAT 99
--- NOTE | 2024-05-10 11:12 | HO.POSTANES ---
Post Anesthesia Evaluation Post Anesthesia Evaluation Date of Service: 05/10/24 Vital Signs: Vital Signs Temp Pulse Resp BP Pulse Ox O2 Del Method 05/10/24 10:55 97.8 F 65 16 94/41 L 97 Room Air 05/10/24 10:20 98.2 F 70 18 128/77 99 Room Air Anesthesia: Monitored Mental Status: Awake Pain Control: Satisfactory Nausea/Vomiting: None Hydration: Adequate Anesthesia-Related Issues: No Anes. Related Issues
== END 2024-05-10 11:43 | disposition home or self-care (01) ==
PROVIDERS: Nurse Practitioner; PCP Internal Medicine; Visit Provider Internal Medicine
PROC: 0DJD8ZZ Inspection of Lower Intestinal Tract, Via Natural or Artificial Opening Endoscopic (ICD-10-PCS; CPT 45378; principal; 2024-05-10 11:00)
DX: Z12.11 Encounter for screening for malignant neoplasm of colon (principal); K64.8 Other hemorrhoids; E78.00 Pure hypercholesterolemia, unspecified; E66.3 Overweight; Z68.27 Body mass index [BMI] 27.0-27.9, adult; Z97.5 Presence of (intrauterine) contraceptive device; Z98.890 Other specified postprocedural states
CPT/HCPCS: 45378; 81025

== ENCOUNTER → 2024-05-10 09:28 | Outpatient (BNV) | payer OTHER, SELFPAY | PROVIDERS: PCP Internal Medicine; Visit Provider Internal Medicine | DX: Z12.11 Encounter for screening for malignant neoplasm of colon (principal); K64.8 Other hemorrhoids | CPT/HCPCS: 45378 ==

== ENCOUNTER 2024-05-31 11:49 | Outpatient (AMB) | payer OTHER, SELFPAY ==
--- NOTE | 2024-05-31 11:54 | MHC.OFFVIS ---
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 The patient is doing well complaining of irregular menstrual cycles over the last few months, repeat ultrasound done in 03/30/2024 showed the following IMPRESSION: 1. IUD in place within the endometrial cavity. 2. Previously identified 2.5 cm complex right ovarian cyst no longer visualized. 3. Complex 1.3 cm left ovarian cyst was not demonstrated on the prior exam. Last co testing in 09/17 was negative except for the presence of normal endometrial cells this was followed by EMB which showed proliferative endometrium negative for hyperplasia malignancy or atypia Last mammogram was BI-RADS 1 in 12/18 [facility] Medical History Adult general medical exam Bacterial vaginosis LGSIL on Pap smear of cervix Dysplasia of cervix, low grade (OMAR 1) ASCUS with positive high risk HPV Well woman exam OMAR II (cervical intraepithelial neoplasia II) Family planning Encounter for IUD insertion IUD check up Unexplained endometrial cells on cervical Pap smear Overweight (BMI 25.0-29.9) Dysplasia of cervix, low grade (OMAR 1) Surgical History History of loop electrical excision procedure (LEEP) H/O knee surgery H/O hand surgery Family History Maternal Grandmother Breast CA Maternal Aunt Breast CA Mother Dementia Social History Housing: House Are you a primary resident care aid to a significant other at home: No Do you presently have visiting nurse or other home services: No Alcohol intake: current Alcohol intake frequency: a few times a month Alcohol type: wine Patient Tobacco Use Status: Never used Tobacco e-Cigarette/Vaping Use: Never Used Second Hand Smoke Exposure: No service: No Current occupational status: employed Current occupational exposures/hazards: No Cognitive needs: No Hearing needs: No Vision needs: No Female Reproductive History Menstrual Age of Menarche: 11 Review of Systems Const All systems reviewed & are unremarkable except as noted in HPI and below Reports as per HPI and Reports no additional complaints GI Reports no additional complaints Reports no additional complaints Physical Exam The patient prefers to defer her pelvic exam till next visit Assessment & Plan Assessment & Plan (1) Complex ovarian cyst: Comment: right resolved New on left side Code(s): N83.299 - Other ovarian cyst, unspecified side Category: Medical Plan: Discussed with the patient the complex ovarian cyst by ultrasound. Discussed with the patient the Ultrasound findings, the main limitation of transvaginal ultrasonography alone as a diagnostic tool to distinguish benign from malignant masses relates to its lack of specificity and low positive predictive value for cancer. The differential diagnosis discussed with the patient includes the following but not limited to: benign and malignant gynecological and non-gynecological causes. Discussed with the patient options of treatment , including laparoscopy ovarian cystectomy/oophorectomy vs. expectant management with repeat US in repeating pelvic US in 20 weeks from previous US, 2 weeks from today. If the ovarian complex cyst is persistent larger and / or more complex looking, will refer to gynecologic Oncology. All pros, cons, risks and benefits of each approach were discussed with the patient including but not limited to a delay in the diagnosis and treatment of ovarian cancer affecting the prognosis; The patient decided to go ahead with expectant management. Instructions given the patient to schedule in a months follow-up ultrasound appointment. All questions were answered & the patient verbalized understanding and agreed with the plan. (2) Abnormal uterine bleeding (AUB): Comment: ParaGard IUD Code(s): N93.9 - Abnormal uterine and vaginal bleeding, unspecified Category: Medical Plan: CBC, TSH, prolactin, FSH/LH, HCG, and pelvic ultrasound ordered. Discussed with the patient the different causes of abnormal bleeding including thyroid disorders, uterine and ovarian pathology, endometrial hyperplasia, carcinoma and other potential causes. Discussed with the patient the work up including CBC (to r/o anemia), TSH, FSH/LH, pelvic Ultrasound, endometrial biopsy to r/o endometrial pathology. All questions answered and the patient verbalized understanding. Instructed the patient to schedule an appointment for an endometrial biopsy /pelvic exam/GC/CT in 2 weeks. Orders: Orders Lutenizing Hormone Today N93.9 - Abnormal uterine and vaginal bleeding, unspecified Follicle Stimulating Hormone Today N93.9 - Abnormal uterine and vaginal bleeding, unspecified US pelvic and transvaginal 2 Weeks N83.299 - Other ovarian cyst, unspecified side Complete Blood Count no Diff Today N93.9 - Abnormal uterine and vaginal bleeding, unspecified TSH reflex Free T4 Today N93.9 - Abnormal uterine and vaginal bleeding, unspecified HCG Quantitative Today N93.9 - Abnormal uterine and vaginal bleeding, unspecified Coding Level of Care Code Est Pt Level 3 (01420) Diagnoses Complex ovarian cyst N83.299 Abnormal uterine bleeding (AUB) N93.9
== END 2024-05-31 12:24 | disposition home or self-care (01) ==
PROVIDERS: PCP Internal Medicine; Visit Provider Obstetrics & Gynecology
DX: N83.299 Other ovarian cyst, unspecified side (principal); N93.9 Abnormal uterine and vaginal bleeding, unspecified
CPT/HCPCS: 99213

== ENCOUNTER → 2024-05-31 11:49 | Outpatient (BNVA) | payer OTHER, SELFPAY | PROVIDERS: PCP Internal Medicine; Visit Provider Obstetrics & Gynecology | DX: N83.299 Other ovarian cyst, unspecified side (principal); N93.9 Abnormal uterine and vaginal bleeding, unspecified | CPT/HCPCS: 99212 ==

== ENCOUNTER 2024-06-22 11:48 | Outpatient (REF) | payer OTHER, SELFPAY ==
--- NOTE | ~2024-06-22 | US_ITS ---
CLINICAL HISTORY: N83.299 - Other ovarian cyst, unspecified side US pelvis transabdominal and transvaginal with Doppler Comparison: US/SR - US PELVIC AND TRANSVAGINAL - 03/29/24 11:17 EST Findings: Transabdominal scanning performed for overall anatomy. Transvaginal scanning performed for additional detail. Uterus is 8.9 cm length. IUD in place. Normal myometrium. No endometrial lesion. Right ovary 3.2 x 1.8 x 1.4 cm. Left ovary 2.9 x 1.5 x 2.1 cm. 1.7 x 1.4 x 1.5 cm cyst in the ovary. 4 x 3 x 3 mm echogenic area. Normal color Doppler with arterial/venous spectral tracing of both ovaries. No free fluid. IMPRESSION: Small cyst in the left ovary. A small echogenic area in the left ovary could represent a calcification. IUD in place. This document has been electronically signed by: Maria Del Rosario Coello MD on 06/22/2024 16:54:43
[2024-06-22 13:47] LABS: Hematocrit 36.5 % (37.0-47.0); Hemoglobin 12.8 g/dl (12.0-16.0); Mean Corpuscular HGB Conc 35.1 g/dl (31.0-35.0); Mean Corpuscular Hemoglobin 30.8 pg (27.0-33.0); Mean Corpuscular Volume 87.7 fL (80.0-98.0); Mean Platelet Volume 9.2 fL (9.4-12.3); Platelet Count 168 X10*3/uL (160-400); Red Blood Count 4.16 X10*6/uL (4.20-5.50); Red Cell Distribution Width 12.3 % (11.0-16.0)
[2024-06-22 14:38] LABS: HCG Quantitative < 2 mIU/mL; TSH reflex Free T4 2.07 uIU/mL (0.32-4.0)
[2024-06-23 04:08] LABS: Follicle Stimulating Hormone 17.7 mIU/mL; Lutenizing Hormone 18.3 mIU/mL
== END 2024-06-22 11:49 | disposition home or self-care (01) ==
LOC: HO.US 11:48
PROVIDERS: PCP Internal Medicine; Visit Provider Obstetrics & Gynecology
DX: N93.9 Abnormal uterine and vaginal bleeding, unspecified (principal); N83.202 Unspecified ovarian cyst, left side; Z97.5 Presence of (intrauterine) contraceptive device; Z87.410 Personal history of cervical dysplasia; Z32.02 Encounter for pregnancy test, result negative
CPT/HCPCS: 36415; 58100; 76830; 76856; 81025; 83001; 83002; 84443; 84702; 85027

== ENCOUNTER 2024-06-22 12:07 | Outpatient (AMB) | payer OTHER, SELFPAY ==
[2024-06-22 12:13] VITALS: BMI 27.3
--- NOTE | 2024-06-22 12:13 | MHC.OFFVIS ---
Vital Signs 06/22/24 12:13 Height 5 ft 4 in Weight 159 lb BMI 27.3 Intake Visit Reasons: EMB/Pelvic Exam/GC/per Bioinformatics Assistant Required: No Information Interpreted: non-clinical & clinical Kiln Hand: Kiln Hand Present (Stephanie Proctor) Accompanied by: Self / Same As Patient Allergies No Known Allergies Allergy (Verified 06/22/24 14:14) HPI Comments Details: Presenting for EMB [facility] Medical History Adult general medical exam Bacterial vaginosis LGSIL on Pap smear of cervix Dysplasia of cervix, low grade (OMAR 1) ASCUS with positive high risk HPV Well woman exam OMAR II (cervical intraepithelial neoplasia II) Family planning Encounter for IUD insertion IUD check up Unexplained endometrial cells on cervical Pap smear Overweight (BMI 25.0-29.9) Dysplasia of cervix, low grade (OMAR 1) Surgical History History of loop electrical excision procedure (LEEP) H/O knee surgery H/O hand surgery Family History Maternal Grandmother Breast CA Maternal Aunt Breast CA Mother Dementia Social History Housing: House Are you a primary care transitions nurse to a significant other at home: No Do you presently have visiting nurse or other home services: No Alcohol intake: current Alcohol intake frequency: a few times a month Alcohol type: wine Patient Tobacco Use Status: Never used Tobacco e-Cigarette/Vaping Use: Never Used Second Hand Smoke Exposure: No service: No Current occupational status: employed Current occupational exposures/hazards: No Cognitive needs: No Hearing needs: No Vision needs: No Female Reproductive History Menstrual Age of Menarche: 11 control method: copper IUCD Physical Exam Vital Signs: BMI result Body Mass Index 27.3 Office Procedures Endometrial Biopsy Details: The patient was counseled regarding the indication and benefits of endometrial sampling to rule out endometrial pathology including not limited to endometrial hyperplasia or endometrial cancer and others; The alternatives (Either do nothing vs. hysteroscopy D&C) & the risks were discussed with the patient including but not limited: pain, uterine perforation, bleeding, infection, possible injury to bladder, bowel, ureter, possible need for blood transfusion with all its possible risks. The patient verbalized understanding all questions answered and signed consent. Urine test done in the office was negative The patient was placed into the dorsal lithotomy position; a speculum was inserted in the vagina. Using aseptic technique for the procedure, the cervix was cleansed with Betadine. The anterior lip of the cervix was grasped with a single tooth tenaculum. The uterus was sounded to 7 cm with a 4 mm Pipelle was used. Tissues samples were obtained and placed in formalin, in a patient labeled container and sent to the pathology department. At the end of the procedure, there was minimal bleeding noted The patient tolerated the procedure well and was discharged in good condition with the following instructions: Nothing in the vagina until the bleeding stops. No sex until the bleeding stops, to call if any of the following occurs: fever (>100.4), flu-like symptoms, abdominal pain, heavy bleeding, four smelling vaginal discharge. The patient was instructed to schedule a Follow up appointment in 2 weeks to discuss pathology results of the biopsy and treatment options. This note was generated with a voice recognition program. Some errors may have been overlooked during the review of this note. Sometimes these errors may affect the content or meaning of a given sentence. [id number] Biopsy Results AMB Test Urine AMB Test Urine Negative Last Edit by Clara Harmon CMA on 06/22/24 14:17 Results Reviewed Results Reviewed: Laboratory Last Values Tst Clinic Negative 06/22/24 14:17 Assessment & Plan Assessment & Plan (1) Abnormal uterine bleeding (AUB): Comment: ParaGard IUD Code(s): N93.9 - Abnormal uterine and vaginal bleeding, unspecified Category: Medical Plan: EMB done, see procedure note Orders: Orders AMB Endometrial Biopsy Today N93.9 - Abnormal uterine and vaginal bleeding, unspecified AMB HCG Urine Test Today Z32.02 - Encounter for test, result negative Coding Level of Care Code Procedure Only Diagnoses Abnormal uterine bleeding (AUB) N93.9 CPT Codes Endometrial Biopsy - CPT: 80869-[id number] Biopsy ([id number])
== END 2024-06-22 14:30 | disposition home or self-care (01) ==
LOC: HO.HWS 12:07
PROVIDERS: PCP Internal Medicine; Visit Provider Obstetrics & Gynecology
DX: N93.9 Abnormal uterine and vaginal bleeding, unspecified (principal); Z32.02 Encounter for pregnancy test, result negative
CPT/HCPCS: 58100

== ENCOUNTER → 2024-06-22 12:35 | Outpatient (BNV) | payer OTHER, SELFPAY | PROVIDERS: PCP Internal Medicine; Visit Provider Nuclear Medicine | DX: N83.202 Unspecified ovarian cyst, left side (principal) | CPT/HCPCS: 76830; 76856 ==

== ENCOUNTER 2024-06-22 14:23 | Outpatient (REF) | payer OTHER, SELFPAY | END 2024-06-22 14:24 | disposition home or self-care (01) | LOC: HO.LNP 14:23 | PROVIDERS: Visit Provider Obstetrics & Gynecology | DX: N93.9 Abnormal uterine and vaginal bleeding, unspecified (principal) | CPT/HCPCS: 88305 ==

== ENCOUNTER 2024-06-30 09:35 | Outpatient (AMB) | payer OTHER, SELFPAY ==
--- NOTE | 2024-06-30 09:39 | A.OFFVIS_ITS ---
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 The following workup was done.: H&H= 12.8/36.5 TSH, hCG were negative. Endometrial biopsy pathology showed the following: Proliferative endometrium; no atypia or hyperplasia identified Co testing was done in 09/17 was negative/HPV negative, endometrial cells present, this was followed by endometrial biopsy which was negative. Mammogram was done in 12/18 was BI-RADS 1 Pelvic ultrasound showed the following: Small cyst in the left ovary. A small echogenic area in the left ovary could represent a calcification. IUD in place. [facility] Medical History Adult general medical exam Bacterial vaginosis LGSIL on Pap smear of cervix Dysplasia of cervix, low grade (OMAR 1) ASCUS with positive high risk HPV Well woman exam OMAR II (cervical intraepithelial neoplasia II) Family planning Encounter for IUD insertion IUD check up Unexplained endometrial cells on cervical Pap smear Overweight (BMI 25.0-29.9) Dysplasia of cervix, low grade (OMAR 1) Surgical History History of loop electrical excision procedure (LEEP) H/O knee surgery H/O hand surgery Family History Maternal Grandmother Breast CA Maternal Aunt Breast CA Mother Dementia Social History Housing: House Are you a primary child care development specialist to a significant other at home: No Do you presently have visiting nurse or other home services: No Alcohol intake: current Alcohol intake frequency: a few times a month Alcohol type: wine Patient Tobacco Use Status: Never used Tobacco e-Cigarette/Vaping Use: Never Used Second Hand Smoke Exposure: No service: No Current occupational status: employed Current occupational exposures/hazards: No Cognitive needs: No Hearing needs: No Vision needs: No Female Reproductive History Menstrual Age of Menarche: 11 Review of Systems Const All systems reviewed & are unremarkable except as noted in HPI and below Reports as per HPI and Reports no additional complaints GI Reports no additional complaints Reports no additional complaints Assessment & Plan Assessment & Plan (1) Abnormal uterine bleeding (AUB): Comment: ParaGard IUD Code(s): N93.9 - Abnormal uterine and vaginal bleeding, unspecified Category: Medical Plan: Discussed with the patient the results of the work up done and options of treatment including but not limited to BCP's, cyclic Progesterone, Mirena IUD, endometrial ablation and hysterectomy. All pros, cons, risks and benefits of each option were discussed with the patient and the patient decided to go ahead with cyclic Provera, so a more detailed discussion re: Progesterone treatment including mechanism of action, benefits (regular menses, endometrial protection form unopposed estrogen and reduction in the risk of endometrial hyperplasia and/or cancer ...), risks (Thrombosis, mood changes, weight gain, breast soreness, ? increased breast ca, others). Instructions were given to use a back- up method for contraception since this is not a method control, take the medication 1 tablet daily starting day 15-24 and to schedule a 3 months follow- up appointment; patient verbalized understanding and agreed with the plan. (2) Complex ovarian cyst: Comment: left side Code(s): N83.299 - Other ovarian cyst, unspecified side Category: Medical Plan: Ultrasound showed left ovarian cyst does not specify simple versus complex, message sent to Radiology domestic technician to read and add an addendum on the ultrasound report whether the left ovarian cyst is simple or complex. If ovarian cyst is complex will treat accordingly. All questions answered, the patient verbalized understanding Medications: New medroxyprogesterone (Provera) start Provera 1 tablet daily from day 15-24 cyclically every months, day 1 being 1st day of menses 10 mg PO DAILY 90 days 30 tabs 0RF Coding Level of Care Code Est Pt Level 3 (13253) Diagnoses Abnormal uterine bleeding (AUB) N93.9 Complex ovarian cyst N83.299
== END 2024-06-30 10:18 | disposition home or self-care (01) ==
LOC: HO.HWS 09:35
PROVIDERS: PCP Internal Medicine; Visit Provider Obstetrics & Gynecology
DX: N93.9 Abnormal uterine and vaginal bleeding, unspecified (principal); N83.299 Other ovarian cyst, unspecified side
CPT/HCPCS: 99213

== ENCOUNTER → 2024-06-30 09:35 | Outpatient (BNVA) | payer OTHER, SELFPAY | PROVIDERS: PCP Internal Medicine; Visit Provider Obstetrics & Gynecology | DX: N93.9 Abnormal uterine and vaginal bleeding, unspecified (principal); N83.299 Other ovarian cyst, unspecified side | CPT/HCPCS: 99212 ==

== ENCOUNTER 2024-07-12 13:09 | Outpatient (AMB) | payer OTHER, SELFPAY ==
--- NOTE | 2024-07-12 13:09 | MHC.OFFVIS ---
Intake Visit Reasons: follow up u/s Allergies No Known Allergies Allergy (Verified 06/30/24 09:40) HPI Comments Details: The patient is schedule telehealth visit for ultrasound follow-up regarding left complex ovarian cyst seen on ultrasound in 04/19. Ultrasound done recently showed the following: Uterus is 8.9 cm length. IUD in place. Normal myometrium. No endometrial lesion. Right ovary 3.2 x 1.8 x 1.4 cm. Left ovary 2.9 x 1.5 x 2.1 cm. 1.7 x 1.4 x 1.5 cm cyst in the ovary. 4 x 3 x 3 mm echogenic area. Normal color Doppler with arterial/venous spectral tracing of both ovaries. No free fluid. [facility] Medical History Adult general medical exam Bacterial vaginosis LGSIL on Pap smear of cervix Dysplasia of cervix, low grade (OMAR 1) ASCUS with positive high risk HPV Well woman exam OMAR II (cervical intraepithelial neoplasia II) Family planning Encounter for IUD insertion IUD check up Unexplained endometrial cells on cervical Pap smear Overweight (BMI 25.0-29.9) Dysplasia of cervix, low grade (OMAR 1) Surgical History History of loop electrical excision procedure (LEEP) H/O knee surgery H/O hand surgery Family History Maternal Grandmother Breast CA Maternal Aunt Breast CA Mother Dementia Social History Housing: House Are you a primary resident care aid to a significant other at home: No Do you presently have visiting nurse or other home services: No Alcohol intake: current Alcohol intake frequency: a few times a month Alcohol type: wine Patient Tobacco Use Status: Never used Tobacco e-Cigarette/Vaping Use: Never Used Second Hand Smoke Exposure: No service: No Current occupational status: employed Current occupational exposures/hazards: No Cognitive needs: No Hearing needs: No Vision needs: No Female Reproductive History Menstrual Age of Menarche: 11 Review of Systems Const All systems reviewed & are unremarkable except as noted in HPI and below Reports as per HPI and Reports no additional complaints GI Reports no additional complaints Reports no additional complaints Telehealth Telehealth Telehealth Platform: Doximity Location of provider rendering services: practice address Location of patient: address on file Patient Identification confirmed using: Name, : Yes Telehealth method: video Patient verbally consented to treatment: Yes Patient verbally consented to billing insurance company: Yes Patient informed of any privacy concerns related to visit: Yes Minutes spent on Phone/Video with Pt.: 3 Assessment & Plan Assessment & Plan (1) Complex ovarian cyst: Comment: left side Code(s): N83.299 - Other ovarian cyst, unspecified side Category: Medical Plan: Discussed with the patient the finding on ultrasound showing a persist left complex ovarian cyst with echogenic area, recommended pelvic MRI, LDH, inhibin A/B, CA 19 9, CEA and CA 125. Instructions given the patient to schedule MRI shreyas and a follow-up appointment. All questions answered, the patient verbalized understanding I spent a total of 20 minutes reviewing the chart, talking to the patient via video and documenting in the medical record. Orders: Orders Lactate Dehydrogenase Today N83.299 - Other ovarian cyst, unspecified side Inhibin A Today N83.299 - Other ovarian cyst, unspecified side Inhibin B Today N83.299 - Other ovarian cyst, unspecified side MR pelvis wo/w con Today N83.299 - Other ovarian cyst, unspecified side CA-125 Today N83.299 - Other ovarian cyst, unspecified side Carbohydrate Antigen 19-9 Today N83.299 - Other ovarian cyst, unspecified side Carcinoembryonic Antigen Today N83.299 - Other ovarian cyst, unspecified side Alpha Fetoprotein Today N83.299 - Other ovarian cyst, unspecified side Coding Level of Care Code Tele Est Pt Level 3 (02701) Diagnoses Complex ovarian cyst N83.299
== END 2024-07-12 15:42 | disposition home or self-care (01) ==
LOC: HO.HWS 13:09
PROVIDERS: PCP Internal Medicine; Visit Provider Obstetrics & Gynecology
DX: N83.299 Other ovarian cyst, unspecified side (principal)
CPT/HCPCS: 99213

== ENCOUNTER → 2024-07-12 13:09 | Outpatient (BNVA) | payer OTHER, SELFPAY | PROVIDERS: PCP Internal Medicine; Visit Provider Obstetrics & Gynecology ==

== ENCOUNTER 2024-10-07 15:29 | Outpatient (REF) | payer OTHER, SELFPAY ==
--- NOTE | ~2024-10-07 | US_ITS ---
EXAMINATION: US PELVIS CLINICAL INFORMATION: Ovarian cyst COMPARISON: June 22, 2024 TECHNIQUE: Ultrasound of the pelvis is performed using both transabdominal and transvaginal transducers along with Doppler. Transvaginal imaging is performed due to inadequate visualization transabdominally. FINDINGS: Uterus: The uterus is anteverted and measures 9.9 x 4.8 x 4.8 cm. Linear echogenic device is present in the upper uterine cavity consistent with IUD. The double wall endometrial thickness is 2 mm. The uterus is smooth in contour and has normal myometrial echogenicity. No visible fibroid. Adnexa: Both ovaries are visualized. There is normal color flow to the adnexa. There is no ovarian torsion. There is no pelvic ascites or fluid collection. Right ovary was not demonstrated Left ovary measures 6.8 x 4.0 x 4.3 cm. There is a 3.3 x 3.0 x 3.2 cm anechoic mass with increased through transmission and imperceptible backwall consistent with a simple cyst. US/US pelvic and transvaginal IMPRESSION: Simple cyst of the left ovary, no follow-up is indicated. IUD is well positioned Electronically signed by: Soto Crowe MD 10/07/2024 05:42 PM EDT
== END 2024-10-07 15:30 | disposition home or self-care (01) ==
LOC: HO.US 15:29
PROVIDERS: PCP Internal Medicine; Visit Provider Obstetrics & Gynecology
DX: N83.299 Other ovarian cyst, unspecified side (principal)
CPT/HCPCS: 76830; 76856

== ENCOUNTER → 2024-10-07 15:30 | Outpatient (BNV) | payer OTHER, SELFPAY | PROVIDERS: PCP Internal Medicine; Visit Provider Radiology Diagnostic Radiology | DX: N83.292 Other ovarian cyst, left side (principal) | CPT/HCPCS: 76830; 76856 ==

== ENCOUNTER 2024-10-11 15:31 | Outpatient (AMB) | payer OTHER, SELFPAY ==
--- NOTE | 2024-10-11 15:32 | A.OFFVIS_ITS ---
Intake Visit Reasons: ultrasound results Allergies No Known Allergies Allergy (Verified 06/30/24 09:40) HPI Comments Details: The patient is schedule telehealth visit for ultrasound and Provera follow-up which showed the following: Uterus: The uterus is anteverted and measures 9.9 x 4.8 x 4.8 cm. Linear echogenic device is present in the upper uterine cavity consistent with IUD. The double wall endometrial thickness is 2 mm. The uterus is smooth in contour and has normal myometrial echogenicity. No visible fibroid. Adnexa: Both ovaries are visualized. There is normal color flow to the adnexa. There is no ovarian torsion. There is no pelvic ascites or fluid collection. Right ovary was not demonstrated Left ovary measures 6.8 x 4.0 x 4.3 cm. There is a 3.3 x 3.0 x 3.2 cm anechoic mass with increased through transmission and imperceptible backwall consistent with a simple cyst. US/US pelvic and transvaginal IMPRESSION: Simple cyst of the left ovary, no follow-up is indicated. IUD is well positioned The patient has been taking Provera cyclicly for the last 3 months and her menstrual cycles and regular and light PFSH Medical History Adult general medical exam Bacterial vaginosis LGSIL on Pap smear of cervix Dysplasia of cervix, low grade (OMAR 1) ASCUS with positive high risk HPV Well woman exam OMAR II (cervical intraepithelial neoplasia II) Family planning Encounter for IUD insertion IUD check up Unexplained endometrial cells on cervical Pap smear Overweight (BMI 25.0-29.9) Dysplasia of cervix, low grade (OMAR 1) Surgical History History of loop electrical excision procedure (LEEP) H/O knee surgery H/O hand surgery Family History Maternal Grandmother Breast CA Maternal Aunt Breast CA Mother Dementia Social History Housing: House Are you a primary regular senior care provider to a significant other at home: No Do you presently have visiting nurse or other home services: No Alcohol intake: current Alcohol intake frequency: a few times a month Alcohol type: wine Patient Tobacco Use Status: Never used Tobacco e-Cigarette/Vaping Use: Never Used Second Hand Smoke Exposure: No service: No Current occupational status: employed Current occupational exposures/hazards: No Cognitive needs: No Hearing needs: No Vision needs: No Female Reproductive History Menstrual Age of Menarche: 11 Telehealth Telehealth Telehealth Platform: obopay Location of provider rendering services: practice address Location of patient: address on file Patient Identification confirmed using: Name, : Yes Telehealth method: video Patient verbally consented to treatment: Yes Patient verbally consented to billing insurance company: Yes Patient informed of any privacy concerns related to visit: Yes Minutes spent on Phone/Video with Pt.: 5 Assessment & Plan Assessment & Plan (1) Complex ovarian cyst: Code(s): N83.299 - Other ovarian cyst, unspecified side Category: Medical Plan: Discussed with the patient ultrasound findings showing the previously identified complex cyst has resolved. The patient was instructed to call if symptoms recur. All questions were answered the patient verbalized understanding. MRI canceled (2) Abnormal uterine bleeding (AUB): Comment: ParaGard IUD Code(s): N93.9 - Abnormal uterine and vaginal bleeding, unspecified Category: Medical Plan: Will discontinue Provera. Instructions given the patient to call in case symptoms recur I spent a total of 20 minutes reviewing the chart, talking to the patient via video and documenting in the medical record. Coding Level of Care Code Tele Est Pt Level 3 (53812) Diagnoses Complex ovarian cyst N83.299 Abnormal uterine bleeding (AUB) N93.9
== END 2024-10-11 16:23 | disposition home or self-care (01) ==
LOC: HO.HWS 15:31
PROVIDERS: PCP Internal Medicine; Visit Provider Obstetrics & Gynecology
DX: N83.299 Other ovarian cyst, unspecified side (principal); N93.9 Abnormal uterine and vaginal bleeding, unspecified
CPT/HCPCS: 99213

== ENCOUNTER 2024-12-12 11:03 | Outpatient (REF) | payer OTHER, SELFPAY ==
--- NOTE | ~2024-12-12 | MM_ITS ---
EXAMINATION: MM SCREENING DIGITAL BREAST TOMOSYNTHESIS, BILATERAL CLINICAL INFORMATION: Screening. Asymptomatic. COMPARISON: Comparison made to multiple prior, most recent December 07, 2023, and most remote November 23, 2019. TECHNIQUE: Digital breast tomosynthesis is performed in both the craniocaudal and mediolateral oblique views along with computer-aided detection (CAD). FINDINGS: BREAST COMPOSITION: The breasts are heterogeneously dense, which may obscure small masses (ACR BI-RADS breast composition Category c). BILATERAL BREASTS: No significant masses, suspicious calcifications or other abnormalities are seen in either breast. MM/MM tomosynthesis screening BI IMPRESSION: BILATERAL BREASTS: Negative, no mammographic evidence of malignancy. Normal interval follow-up is recommended in 12 months. ASSESSMENT: BI-RADS 1 - Negative RECOMMENDATION: Routine annual mammography screening. FOLLOW-UP: 1 year F/U This examination should not preclude the clinical evaluation of a suspicious palpable abnormality. This patient's information was entered into a reminder system with a target due date for their next mammogram. Electronically signed by: gD Ashby MD 12/13/2024 09:19 PM EDT
--- OUTSIDE RECORDS SUMMARY | 2024-12-12 12:16 | XMS_ITS | Clinical Summary ---
Author Organization [facility] Address [address] [place] [id number] Phone Care Team Providers Care Flask Pusher Name Role Phone Asia Buckley MD Primary Care Provid er Allergies No known active allergies Immunizations Immunization Administration Dates Next Due Tdap 03/03/2010 Social History Tobacco Use Types Packs/Day Years Used Date Smoking Tobacco: Never Assessed Education Answer Date Recorded Are you interested in more education? Not on rusty e 08/23/2022 Are you concerned about learning? Not on file 08/23/2022 No 08/23/2022 No 08/23/2022 Digital Access Answer Date Recorded No 09/23/2022 No 09/23/2022 Reliable internet access at home? Not on file 09/23/2022 Device with a working camera? Not on file Comments Unknown Sex and Gender Information Value Date Recorded Sex Assigned at Not on file Legal Sex Female 11:28 AM EDT Gender Identity Not on file Sexual Orientation Not on file Plan of Treatment Health Maintenance Due Date Last Done Comments LIPID PANEL 1978 DEPRESSION SCREENING 1990 SMOKING Hx and SMOKELESS TOBACCO SCREENING 1991 HEPATITIS C SCREENING 1996 HIV ONE-TIME SCREENING (18-6 5 YEARS) 1996 PAP SMEAR 1999 MAMMOGRAM 2018 Adult Td,Tdap Booster 03/03/2020 03/03/2010 COLOGUARD 2023 COLONOSCOPY 2023 COLORECTAL CANCER SCREENING 2023 FIT TEST 2023 FOBT 2023 SIGMOIDOSCOPY 2023 VIRTUAL COLONOSCOPY 2023 COVID-19 VACCINE (2023-2 5 season) 2023 04/07/2021, 08/30/2020, 08/08/2020 HEPATITIS A VACCINES Aged Out No long er eligible based on patient's age to complete this topic HIB VACCINES Aged Out No longer eligi ble based on patient's age to complete this topic MENINGOCOCCAL VACCINES (ACWY) Aged Out No longer eligible based on patient's age to complete this topic MENINGOCOCCAL VACCINES (B) Aged Out N o longer eligible based on patient's age to complete this topic PNEUMOCOCCAL VACCINES (0-49 years) Aged Out No longer eligible b ased on patient's age to complete this topic Medical Devices Not on file Insurance [facility] NON NSPG PCP SILVER CLARITY CONNECTORCARE [facility] NON NSPG PCP SILVER CLARITY CONNECTORCARE [employer] NON NSPG PCP SILVER CLARITY CONNECTORCARE [employer] NON NSPG PCP SILVER CLARITY CONNECTORCARE [employer] NON NSPG PCP S[employer] CLARITY CONNECTORCARE Member Subscriber Plan / Payer (Ef fective 2022-Present) Name:Gianna Blanchard Relation to Subscriber:Self Name:Gianna Blanchard Payer ID:[id number] Type:O Address: [place] [id number] [facility] NON NSPG PCP JEANINE LAIRD [facility] Care Teams Flask Pusher Relationship Specialty Start Date End Date Asia Buckley MD [address] [place] [address] PCP - General Internal Medicine 08/12/22 Additional Source Comments The information contained in this document represents components of the legal health record. It is not the complete legal health record.[facility]
== END 2024-12-12 11:04 | disposition home or self-care (01) ==
LOC: HO.MAMMO 11:03
PROVIDERS: PCP Internal Medicine; Visit Provider Internal Medicine
DX: Z12.31 Encounter for screening mammogram for malignant neoplasm of breast (principal)
CPT/HCPCS: 77063; 77067

== ENCOUNTER → 2024-12-12 11:15 | Outpatient (BNV) | payer OTHER, SELFPAY | PROVIDERS: PCP Internal Medicine; Visit Provider Radiology Body Imaging | DX: Z12.31 Encounter for screening mammogram for malignant neoplasm of breast (principal) | CPT/HCPCS: 77063; 77067 ==

== ENCOUNTER 2025-01-12 09:29 | Outpatient (AMB) | payer OTHER, SELFPAY ==
--- NOTE | 2025-01-12 09:41 | A.OFFPC_ITS ---
Vital Signs 01/12/25 09:42 Height 5 ft 4 in Weight 173 lb 2 oz BMI 29.7 BP 122/66 Blood Pressure Location Lt brachial Position Sitting Pulse 63 Pulse Source Pulse Oximeter Temp 97.3 F Temp Source Temporal Artery Scan Pulse Oximetry (%) 98 Oxygen Delivery Method Room Air Intake Visit Reasons: Annual physical Intake Note: Patient is here today for a physical. Director News Required: No Production Control Clerk: Not Required per policy Accompanied by: Self / Same As Patient Allergies No Known Allergies Allergy (Verified 01/12/25 09:53) Medication List - Last Reconciled 01/12/25 by Asia King MD copper (ParaGard T 380A) intrauterine Tobacco use date assessed: 01/12/25 Dental Screening Dental Screen Date: 01/12/25 Did you have a dental visit in the last 12 months?: Yes Did you have a dental problem in the last 6 months where you did not have access to dental care?: No Was dental information given to patient?: Patient has dentist HPI HPI Comments History of Present Illness Details This is a 44-year-old female that comes for her physical exam. Mammogram done last month was normal. Pap smear done 2023. Will have Tdap vaccine today. Colonoscopy done this year was normal. No acute complaint. [facility] Medical History Adult general medical exam Bacterial vaginosis LGSIL on Pap smear of cervix Dysplasia of cervix, low grade (OMAR 1) ASCUS with positive high risk HPV Well woman exam OMAR II (cervical intraepithelial neoplasia II) Family planning Encounter for IUD insertion IUD check up Unexplained endometrial cells on cervical Pap smear Overweight (BMI 25.0-29.9) Dysplasia of cervix, low grade (OMAR 1) Surgical History History of loop electrical excision procedure (LEEP) H/O knee surgery H/O hand surgery Family History (Updated 01/12/25 @ 09:58 by Asia King MD) Maternal Grandmother Breast CA Maternal Aunt Breast CA Mother Dementia Father No problems noted. Social History Housing: House Are you a primary rn complex care to a significant other at home: No Do you presently have visiting nurse or other home services: No Alcohol intake: current Alcohol intake frequency: a few times a month Alcohol type: wine Patient Tobacco Use Status: Never used Tobacco e-Cigarette/Vaping Use: Never Used Second Hand Smoke Exposure: No service: No Current occupational status: employed Current occupational exposures/hazards: No Cognitive needs: No Hearing needs: No Vision needs: No Female Reproductive History Menstrual Age of Menarche: 11 Questionnaire PHQ-9 Over the last 2 weeks, how often have you been bothered by any of the following problems? 1. Little interest or pleasure in doing things: not at all 2. Feeling down, depressed, or hopeless: not at all 3. Trouble falling or staying asleep, or sleeping too much: not at all 4. Feeling tired or having little energy: not at all 5. Poor appetite or overeating: not at all 6. Feeling bad about yourself - or that you are a failure or have let yourself or your family down: not at all 7. Trouble concentrating on things, such as reading the newspaper or watching television: not at all 8. Moving or speaking so slowly that other people could have noticed. Or the opposite - being so fidgety or restless that you have been moving around a lot more than usual: not at all 9. Thoughts that you would be better off or of hurting yourself in some way: not at all Total score: 0 Depression Screening Interpretation: Negative Depression Screening Done: Yes 03230 - PHQ-9 Billing: Yes Source: Developed by Drs. Seferino Solano, Cathy Merchant, Joshua Nj and colleagues, with an educational johnathon from [employer]. Thrive Questionnaire Date Thrive assessed: 01/11/25 I am a: Patient What is your living situation today?: I have a steady place to live Within the past 12 months, did the food you bought not last and you didn't have the money to get more?: Never true Within the past 12 months, did you worry whether your food would run out before you got money to buy more?: Never true Do you have trouble paying for medicines?: No Do you have trouble getting transportation to medical appointments?: No Do you have trouble paying your heating and electricity bill?: No Do you have trouble taking care of your child, family member or friend?: No Do you have trouble with day-to-day activities such as bathing, preparing meals, shopping, managing finances, etc.?: No Are you currently unemployed and looking for a job?: No Are you interested in more education?: No Please select the resources that you would like help with: None Currently or been in a relationship where the following occur: No concerns reported THRIVE Score: 0 AUDIT C Alcohol Use Questionnaire (AUDIT-C) 1. How often do you have a drink containing alcohol?: 2-4 times a month 2. How many drinks containing alcohol do you have on a typical day when you are drinking?: 3 or 4 3. How often do you have six or more drinks on one occasion?: Less than monthly Total Score: 4 MAURILIO-7 AMB Questionnaire MAURILIO-7 Date MAURILIO - 7 assessed: 01/12/25 Feeling nervous, anxious, or on edge: 0 = Not at all Not being able to stop or control worryin = Not at all Worrying too much about different things: 0 = Not at all Trouble relaxin = Not at all Being so restless that it is hard to sit still: 0 = Not at all Becoming easily annoyed or irritable: 0 = Not at all Feeling afraid as if something awful might happen: 0 = Not at all Total MAURILIO-7 score (0-4 normal; 5-9 mild; 10-14 moderate; 15-21 severe): 0 Source: Developed by Drs. Seferino Solano, Cathy Merchant, Joshua Nj and colleagues, with an educational johnathon from [employer]. MAURILIO-7 Assessment Billing MAURILIO-7 Assessment Tool: MAURILIO-7 Assessment 46148 Review of Systems Const All systems reviewed & are unremarkable except as noted in HPI and below Card Denies chest pain at rest, Denies chest pain with activity, Denies edema, Denies irregular heart rhythm, Denies claudication, Denies dyspnea, Denies dyspnea on exertion, Denies orthopnea, Denies paroxysmal nocturnal dyspnea and Denies slow heart rate Resp Denies cough, Denies dyspnea and Denies dyspnea on exertion GI Denies abdominal pain, Denies change in bowel habits, Denies excessive flatus, Denies nausea and Denies vomiting Skin/Breast Denies bleeding lesions, Denies changing lesions and Denies rash Neuro Denies lack of coordination Physical exam (Primary Care) Vital Signs: Last Vital Signs Temp 97.3 F 01/12/25 09:42 Pulse 63 01/12/25 09:42 BP 122/66 01/12/25 09:42 Pulse Ox 98 01/12/25 09:42 Oxygen Delivery Method Room Air 01/12/25 09:42 BMI result Body Mass Index 29.7 Tobacco/Smoking Status: Tobacco use Status Tobacco use date assessed 01/12/25 01/12/25 09:46 Patient Tobacco Use Status Never used Tobacco 01/12/25 09:46 e-Cigarette/Vaping Use Never Used 01/12/25 09:46 PHQ-9: PHQ-9 Score PHQ-9: Total score 0 01/12/25 10:20 Depression Screening Interpretation: Negative Thrive Assessment: Date of Thrive Assessment Date Thrive assessed 01/11/25 01/12/25 09:46 Currently or been in a relationship where the following occur: No concerns reported HENME Head: Yes normal to inspection, Yes normocephalic and Yes atraumatic Ears: external ears normal Eyes General: appearance normal, both eyes and all related structures Eyelids: Yes eyelids normal Conjunctivae: conjunctivae normal Neck Neck: Yes normal visual inspection and Yes supple Resp Effort & Inspection: normal respiratory effort Auscultation: clear to auscultation bilaterally Cardio Jugular venous distension: no JVD Rate: regular rate Rhythm: regular rhythm Heart sounds: S1 normal heart sound present and S2 normal heart sound present GI Inspection: Yes normal to inspection Palpation (GI): Soft to palpation and nontender Auscultation: normal bowel sounds Skin General skin exam: no rashes or lesions noted Neuro General: no focal motor deficits Extrem General: Yes full ROM Psych Appearance: grossly normal Immunizations Boostrix Tdap 2.5 Lf unit-8 mcg-5 Lf/0.5 mL intramuscular syringe Performing Provider: Asia King MD Performing Location: [facility] [place] [facility] Administered by: TRIPP Patel on 01/12/25 10:19 Dose Route Admin Location Dispensed Lot Number Expiration Date [facility] Senior Graduate Advisor 0.5 mL IM Right Deltoid 0.5 mL [id number] 03/16/27 55141-936-74 [employer] Total Dispensed Waste 0.5 mL 0 % VIS Given Date VIS Provided VIS Publication Date 01/12/25 Single Vaccine 20 Eligibility Eligibility Date Funding Source Not [facility] Eligible 01/12/25 Private Coding Level of Care Code Est Pt Prev Care 40-64y(64347) Diagnoses Physical exam Z00.00 Additional Codes MAURILIO-7 Assessment Billing - MAURILIO-7 Assessment Tool: MAURILIO-7 Assessment 39759 ([id number]) PHQ-9 - 75264 - PHQ-9 Billing: Yes ([id number]) Time Spent (min) 30 Assessment & Plan Assessment & Plan (1) Physical exam: Code(s): Z00.00 - Encounter for general adult medical examination without abnormal findings Category: Medical Plan Repeat in a year. Orders: Orders Comprehensive Romney. Panel Fast Today Z00.00 - Encounter for general adult medical examination without abnormal findings Thyroid Stimulating Hormone Today E66.3 - Overweight Lipid Panel Today Z00.00 - Encounter for general adult medical examination without abnormal findings TDaP Immunization Today Z23 - Encounter for immunization
[2025-01-12 09:42] VITALS: BP 122/66; PULSE 63; TEMP 36.3; O2SAT 98; BMI 29.7
--- OUTSIDE RECORDS SUMMARY | 2025-01-12 11:11 | XMS_ITS | Clinical Summary ---
Author Organization [facility] Address [address] [place] [id number] Phone Care Team Providers Care Area Loss Prevention Manager Name Role Phone Asia Buckley MD Primary [...] FOBT 2023 SIGMOIDOSCOPY 2023 VIRTUAL COLONOSCOPY 2023 INFLUENZA VACCINE (#1) 2024 2, 04/10/2021 COVID-19 VACCINE (2024-05 6 season) 2024 04/07/2021, 08/30/2020, 08/08/2020 HEPATITIS A VACCINES Aged [...] topic Medical Devices Not on file Insurance [facility] [place] [facility] NON NSPG PCP [place] [employer] [facility] [employer] NON NSPG PCP [place] [employer] NON NSPG PCP S[place] [employer] NON NSPG PCP [place] [employer] NON NSPG [facility] Care Teams Area Loss Prevention Manager Relationship Specialty Start Date End Date Asia Buckley MD [address] [place] [address] PCP - General Internal Medicine 08/12/22 Additional Source Comments The information contained in this document represents components of the legal health record. It is not the complete legal health record.[facility]
== END 2025-01-12 10:17 | disposition home or self-care (01) ==
LOC: HO.HMCH 09:30
PROVIDERS: PCP Internal Medicine; Visit Provider Internal Medicine
DX: Z00.00 Encounter for general adult medical examination without abnormal findings (principal); Z23 Encounter for immunization

== ENCOUNTER → 2025-01-12 09:29 | Outpatient (BNVA) | payer OTHER, SELFPAY | PROVIDERS: PCP Internal Medicine; Visit Provider Internal Medicine | DX: Z00.00 Encounter for general adult medical examination without abnormal findings (principal); E66.3 Overweight; Z23 Encounter for immunization; Z68.29 Body mass index [BMI] 29.0-29.9, adult | CPT/HCPCS: 90471; 90715; 96127; 99396 ==

== ENCOUNTER 2025-03-06 10:26 | Outpatient (REF) | payer OTHER, SELFPAY ==
[2025-03-06 12:17] LABS: Hematocrit 35.0 % (37.0-47.0); Hemoglobin 12.2 g/dl (12.0-16.0); Mean Corpuscular HGB Conc 34.9 g/dl (31.0-35.0); Mean Corpuscular Hemoglobin 30.6 pg (27.0-33.0); Mean Corpuscular Volume 87.7 fL (80.0-98.0); NRBC Abs Auto 0.000 X10*3/uL (0.0-0.012); NRBC Pct Auto 0.0 /100WBC (0.0-0.2); Platelet Count 177 X10*3/uL (160-400); Red Blood Count 3.99 X10*6/uL (4.20-5.50); White Blood Count 4.9 X10*3/uL (4.8-10.8)
[2025-03-06 18:28] LABS: CT PCR NOT DETECTED (Not Detect.); NG PCR NOT DETECTED (Not Detect.)
[2025-03-07 06:08] LABS: Follicle Stimulating Hormone 16.7 mIU/mL
== END 2025-03-06 10:27 | disposition home or self-care (01) ==
LOC: HO.LAB 10:26
PROVIDERS: PCP Internal Medicine; Visit Provider Obstetrics & Gynecology
DX: Z01.419 Encounter for gynecological examination (general) (routine) without abnormal findings (principal); N93.9 Abnormal uterine and vaginal bleeding, unspecified; Z20.2 Contact with and (suspected) exposure to infections with a predominantly sexual mode of transmission; Z11.51 Encounter for screening for human papillomavirus (HPV)
CPT/HCPCS: 36415; 83001; 83002; 84443; 84702; 85027; 87491; 87591; 87626; 99212; 99396

== ENCOUNTER 2025-03-06 10:26 | Outpatient (AMB) | payer OTHER, SELFPAY ==
--- NOTE | 2025-03-06 10:28 | A.OFFVIS_ITS ---
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 Complaining of irregular menstrual cycles on IUD la st 2 and half year Last Pap/HPV was negative with endometrial cells in 09/17, this was followed by endometrial biopsy which was negative for endometrial hyperplasia and/or malignancy Last Mammogram was BI-RADS 1 in 12/19 Last colonoscopy was in 05/21, the recommendation was to repeat in 10 years [facility] Medical History Well woman exam Adult general medical exam Bacterial vaginosis LGSIL on Pap smear of cervix Dysplasia of cervix, low grade (OMAR 1) ASCUS with positive high risk HPV OMAR II (cervical intraepithelial neoplasia II) Family planning Encounter for IUD insertion IUD check up Unexplained endometrial cells on cervical Pap smear Overweight (BMI 25.0-29.9) Dysplasia of cervix, low grade (OMAR 1) Surgical History History of loop electrical excision procedure (LEEP) H/O knee surgery H/O hand surgery Family History Maternal Grandmother Breast CA Maternal Aunt Breast CA Mother Dementia Father No problems noted. Social History Housing: House Are you a primary resident caregiver to a significant other at home: No Do you presently have visiting nurse or other home services: No Alcohol intake: current Alcohol intake frequency: a few times a month Alcohol type: wine Patient Tobacco Use Status: Never used Tobacco e-Cigarette/Vaping Use: Never Used Second Hand Smoke Exposure: No Patient : No service: No Current occupational status: employed Current occupational exposures/hazards: No Cognitive needs: No Hearing needs: No Vision needs: No Female Reproductive History Menstrual Age of Menarche: 11 control method: copper IUCD (Paraguard) Date of last pap smear: 08/31/23 History of abnormal pap smear: Yes Date of Mammogram: 12/12/24 (bi rad 1) Review of Systems Const All systems reviewed & are unremarkable except as noted in HPI and below Card Reports as per HPI Resp Reports as per HPI GI Reports as per HPI and Reports no additional complaints Reports as per HPI Physical Exam Vital Signs: Last Vital Signs BP 122/76 03/06/25 10:39 Const General: cooperative, healthy appearing and comfortable Chest Chest palpation & inspection: normal inspection of the chest and normal palpation of entire chest wall Breast/axilla inspection: normal inspection of the breasts and normal inspection of the axillae Breast/axilla palpation: normal palpation of the breasts, normal palpation of the axillae and no axillary lymphadenopathy Resp Effort & Inspection: normal respiratory effort Auscultation: clear to auscultation bilaterally Percussion: percussion normal Cardio Palpation: normal PMI Rate: regular rate Rhythm: regular rhythm Heart sounds: no murmurs and no rubs Peripheral pulses: Peripheral pulses 2+ throughout GI Inspection: Yes normal to inspection Palpation (GI): Soft to palpation, nontender, no guarding, not rigid and No hepatosplenomegaly present Percussion: Yes normal to percussion Auscultation: normal bowel sounds Rectal Exam - Female: deferred General: Yes bladder normal to palpation External Female Exam: No lesion Speculum Exam - Vagina: normal appearance of the vagina, normal palpation, normal vaginal discharge and not erythematous Speculum Exam - Cervix: normal appearance of the cervix, normal palpation and Other cervical findings present (IUD string in place) Bimanual exam- vagina & uterus: normal bimanual exam, normal palpation, uterine size normal, bladder normal to palpation, consistency normal and normal palpation Bimanual Exam- Adnexa, other: normal adnexae, no masses and no tenderness Assessment & Plan Assessment & Plan (1) Well woman exam: Comment: OMAR 1 in 2022 OMAR 2 status post LEEP cone with free margins 09/13 for Co testing negative with endometrial cells, EMB negative Code(s): Z01.419 - Encounter for gynecological examination (general) (routine) without abnormal findings Category: Medical Plan: Cotesting done. Instructions given to patient to schedule next screening Mammogram in 12/20. Counseled the patient about the recommended dietary allowance of 1000 mg of Calcium & 600 IU of vitamin D. The patient was instructed to perform monthly self-breast exams and to schedule an annual exam in a year; All questions answered and the patient verbalized understanding. Instructed the patient to schedule annual exam in a year (2) Abnormal uterine bleeding (AUB): Comment: ParaGard IUD Code(s): N93.9 - Abnormal uterine and vaginal bleeding, unspecified Category: Medical Plan: Co testing done, GC and chlamydia taken CBC, TSH, HCG, and pelvic ultrasound ordered. Discussed with the patient the different causes of abnormal bleeding including thyroid disorders, uterine and ovarian pathology, endometrial hyperplasia, carcinoma and other potential causes. Discussed with the patient the work up including CBC (to r/o anemia), TSH, pelvic Ultrasound, endometrial biopsy to r/o endometrial pathology. All questions answered and the patient verbalized understanding. Instructed the patient to schedule an appointment for an endometrial biopsy in 2 weeks. Orders: Orders Complete Blood Count no Diff Today N93.9 - Abnormal uterine and vaginal bleeding, unspecified TSH reflex Free T4 Today N93.9 - Abnormal uterine and vaginal bleeding, unspecified HCG Quantitative Today N93.9 - Abnormal uterine and vaginal bleeding, unspecified US pelvic and transvaginal Today N93.9 - Abnormal uterine and vaginal bleeding, unspecified Lutenizing Hormone Today N93.9 - Abnormal uterine and vaginal bleeding, unspecified Follicle Stimulating Hormone Today N93.9 - Abnormal uterine and vaginal bleeding, unspecified Coding Level of Care Code Est Pt Level 3 (33707) Est Pt Prev Care 40-64y(50319) Diagnoses Well woman exam Z01.419 Abnormal uterine bleeding (AUB) N93.9
[2025-03-06 10:39] VITALS: BP 122/76
--- OUTSIDE RECORDS SUMMARY | 2025-03-06 12:15 | XMS_ITS | Clinical Summary ---
Author Organization [facility] Address [address] [place] [id number] Phone Care Team Providers Care Process Safety Engineering Technologist Name Role Phone Asia Buckley MD Primary [...] topic Medical Devices Not on file Insurance [facility] [place] [facility] NON NSPG PCP [place] [employer] NON NSPG PCP [place] [employer] NON NSPG PCP S[place] [employer] NON NSPG PCP S[place] [employer] NON NSPG [facility]CP [facility] Care Teams Process Safety Engineering Technologist Relationship Specialty Start Date End Date Asia Buckley MD [address] [place] [address] PCP - General Internal Medicine 08/12/22 Additional Source Comments The information contained in this document represents components of the legal health record. It is not the complete legal health record.[facility]
== END 2025-03-06 11:19 | disposition home or self-care (01) ==
LOC: HO.HWS 10:27
PROVIDERS: PCP Internal Medicine; Visit Provider Obstetrics & Gynecology
DX: Z01.419 Encounter for gynecological examination (general) (routine) without abnormal findings (principal); N93.9 Abnormal uterine and vaginal bleeding, unspecified
CPT/HCPCS: 99213; 99396; 99459

== ENCOUNTER 2025-03-06 12:27 | Outpatient (REF) | payer OTHER, SELFPAY | END 2025-03-06 12:28 | disposition home or self-care (01) | LOC: HO.LNP 12:27 | PROVIDERS: Visit Provider Obstetrics & Gynecology | DX: Z01.419 Encounter for gynecological examination (general) (routine) without abnormal findings (principal); Z11.51 Encounter for screening for human papillomavirus (HPV) | CPT/HCPCS: 87626; 88175 ==

== ENCOUNTER 2025-03-13 11:32 | Outpatient (REF) | payer OTHER, SELFPAY ==
--- NOTE | ~2025-03-13 | US_ITS ---
CLINICAL HISTORY: N93.9 - Abnormal uterine and vaginal bleeding, unspecified Transabdominal and transvaginal pelvic ultrasound Comparison: 10/07/2024 Findings: Uterus 9.4 x 4.0 x 5.1 cm. Endometrium 4 mm. IUD in normal position. No significant free fluid. Right ovary 3.3 x 2.2 x 2.3 cm. Left ovary 4.0 x 1.9 x 2.7 cm. No significant focal abnormality. Impression: No significant abnormality This document has been electronically signed by: Ronnie Resendiz MD on 03/13/2025 20:04:01
== END 2025-03-13 11:33 | disposition home or self-care (01) ==
LOC: HO.US 11:32
PROVIDERS: PCP Internal Medicine; Visit Provider Obstetrics & Gynecology
DX: N93.9 Abnormal uterine and vaginal bleeding, unspecified (principal)
CPT/HCPCS: 76830; 76856

== ENCOUNTER → 2025-03-13 11:33 | Outpatient (BNV) | payer OTHER, SELFPAY | PROVIDERS: PCP Internal Medicine; Visit Provider Radiology Diagnostic Radiology | DX: N93.9 Abnormal uterine and vaginal bleeding, unspecified (principal) | CPT/HCPCS: 76830; 76856 ==

== ENCOUNTER 2025-04-04 13:03 | Outpatient (REF) | payer OTHER, SELFPAY | END 2025-04-04 13:04 | disposition home or self-care (01) | LOC: HO.LNP 13:03 | PROVIDERS: PCP Internal Medicine; Visit Provider Obstetrics & Gynecology | DX: N93.9 Abnormal uterine and vaginal bleeding, unspecified (principal); R87.618 Other abnormal cytological findings on specimens from cervix uteri; Z32.02 Encounter for pregnancy test, result negative | CPT/HCPCS: 58100; 81025; 88305 ==

== ENCOUNTER 2025-04-04 13:03 | Outpatient (AMB) | payer OTHER, SELFPAY ==
--- NOTE | 2025-04-04 13:05 | MHC.OFFVIS ---
Vital Signs 04/04/25 13:15 Height 5 ft 4 in Weight 172 lb BMI 29.5 BP 122/74 Intake Visit Reasons: u/s follow up/EMB Environmental Engineering Aide Required: No Information Interpreted: non-clinical & clinical Rod And Tube Straightener: Rod And Tube Straightener Present Accompanied by: Self / Same As Patient Allergies No Known Allergies Allergy (Verified 04/04/25 13:15) HPI Comments Details: Presenting for EMB the patient has been having irregular menstrual cycles and Co testing showed endometrial cells with negative Pap/HPV [facility] Medical History (Updated 04/04/25 @ 13:36 by Vinod Gupta MD) Unexplained endometrial cells on cervical Pap smear Well woman exam Adult general medical exam Bacterial vaginosis LGSIL on Pap smear of cervix Dysplasia of cervix, low grade (OMAR 1) ASCUS with positive high risk HPV OMAR II (cervical intraepithelial neoplasia II) Family planning Encounter for IUD insertion IUD check up Overweight (BMI 25.0-29.9) Dysplasia of cervix, low grade (OMAR 1) Surgical History History of loop electrical excision procedure (LEEP) H/O knee surgery H/O hand surgery Family History Maternal Grandmother Breast CA Maternal Aunt Breast CA Mother Dementia Father No problems noted. Social History Housing: House Are you a primary campground caretaker to a significant other at home: No Do you presently have visiting nurse or other home services: No Alcohol intake: current Alcohol intake frequency: a few times a month Alcohol type: wine Patient Tobacco Use Status: Never used Tobacco e-Cigarette/Vaping Use: Never Used Second Hand Smoke Exposure: No service: No Current occupational status: employed Current occupational exposures/hazards: No Cognitive needs: No Hearing needs: No Vision needs: No Female Reproductive History Menstrual Age of Menarche: 11 Physical Exam Vital Signs: Last Vital Signs BP 122/74 04/04/25 13:15 BMI result Body Mass Index 29.5 Office Procedures Endometrial Biopsy Details: The patient was counseled regarding the indication and benefits of endometrial sampling to rule out endometrial pathology including not limited to endometrial hyperplasia or endometrial cancer and others; The alternatives (Either do nothing vs. hysteroscopy D&C) & the risks were discussed with the patient including but not limited: pain, uterine perforation, bleeding, infection, possible injury to bladder, bowel, ureter, possible need for blood transfusion with all its possible risks. The patient verbalized understanding all questions answered and signed consent. Urine test done in the office was negative The patient was placed into the dorsal lithotomy position; a speculum was inserted in the vagina. Using aseptic technique for the procedure, the cervix was cleansed with Betadine. The anterior lip of the cervix was grasped with a single tooth tenaculum. The uterus was sounded to 7 cm with a 4 mm Pipelle was used. Tissues samples were obtained and placed in formalin, in a patient labeled container and sent to the pathology department. At the end of the procedure, there was minimal bleeding noted The patient tolerated the procedure well and was discharged in good condition with the following instructions: Nothing in the vagina until the bleeding stops. No sex until the bleeding stops, to call if any of the following occurs: fever (>100.4), flu-like symptoms, abdominal pain, heavy bleeding, four smelling vaginal discharge. The patient was instructed to schedule a Follow up appointment in 2 weeks to discuss pathology results of the biopsy and treatment options. This note was generated with a voice recognition program. Some errors may have been overlooked during the review of this note. Sometimes these errors may affect the content or meaning of a given sentence. [id number] Biopsy Results AMB Test Urine AMB Test Urine Negative Last Edit by Kathryn Pineda LPN on 04/04/25 13:19 Assessment & Plan Assessment & Plan (1) Abnormal uterine bleeding (AUB): Comment: ParaGard IUD Code(s): N93.9 - Abnormal uterine and vaginal bleeding, unspecified Category: Medical Plan: EMB done, see procedure note (2) Unexplained endometrial cells on cervical Pap smear: Code(s): R87.618 - Other abnormal cytological findings on specimens from cervix uteri Category: Medical Plan: Discussed with the patient the finding of endometrial cells on Pap smear, recommended EMB to rule out endometrial pathology including endometrial hyperplasia and/or malignancy, EMB done, see procedure note Orders: Orders AMB HCG Urine Test Today Z32.02 - Encounter for test, result negative Surgical Today R87.618 - Other abnormal cytological findings on specimens from cervix uteri AMB Endometrial Biopsy Today N93.9 - Abnormal uterine and vaginal bleeding, unspecified, R87.618 - Other abnormal cytological findings on specimens from cervix uteri Coding Level of Care Code Est Pt Level 3 (45763) Procedure Only Diagnoses Abnormal uterine bleeding (AUB) N93.9 Unexplained endometrial cells on cervical Pap smear R87.618 CPT Codes Endometrial Biopsy - CPT: 23439-Eoowbajrikd Biopsy ([id number])
[2025-04-04 13:15] VITALS: BP 122/74; BMI 29.5
--- OUTSIDE RECORDS SUMMARY | 2025-04-04 17:12 | XMS_ITS | Clinical Summary ---
Author Organization [facility] Address [address] [place] [id number] Phone Care Team Providers Care Management Tech Name Role Phone Asia Buckley MD Primary [...] topic Medical Devices Not on file Insurance [facility] P[facility] CLENDENIN CLARITY CONNECTORCARE [facility] NON NSPG PCP CLENDENIN CLARITY CONNECTORCARE [facility] NON NSPG PCP SILVER CLARITY CONNECTORCARE [employer] NON NSPG PCP SILVER CLARITY CONNECTORCARE [employer] NON NSPG PCP SILVER CLARITY CONNECTORCARE [employer] NON NSPG [facility] Care Teams Management Tech Relationship Specialty Start Date End Date Asia Buckley MD [address] [place] [address] PCP - General Internal Medicine 08/12/22 Additional Source Comments The information contained in this document represents components of the legal health record. It is not the complete legal health record.[facility]
== END 2025-04-04 14:05 | disposition home or self-care (01) ==
LOC: HO.HWS 13:04
PROVIDERS: PCP Internal Medicine; Visit Provider Obstetrics & Gynecology
DX: N93.9 Abnormal uterine and vaginal bleeding, unspecified (principal); R87.618 Other abnormal cytological findings on specimens from cervix uteri; Z32.02 Encounter for pregnancy test, result negative
CPT/HCPCS: 58100

== ENCOUNTER 2025-04-19 09:51 | Outpatient (AMB) | payer OTHER, SELFPAY ==
--- NOTE | 2025-04-19 09:53 | A.OFFVIS_ITS ---
Intake Visit Reasons: EMB results Allergies No Known Allergies Allergy (Verified 04/19/25 09:54) HPI Comments Details: The patient scheduled a telehealth visit for follow-up to discuss the results of her abnormal uterine bleeding workup and options of treatment. The following workup was done.: H&H= 12.2/35 TSH, hCG, GC and chlamydia were negative. FSH/LH=16.7/11.8 Endometrial biopsy pathology showed the following: Superficial fragments of inactive endometrium with focal breakdown; no atypia or hyperplasia identified 03/21 Co testing was done was negative, endometrial cells present. 12/19 Mammogram was BI-RADS 1. Pelvic ultrasound showed the following: Uterus 9.4 x 4.0 x 5.1 cm. Endometrium 4 mm. IUD in normal position. No significant free fluid. Right ovary 3.3 x 2.2 x 2.3 cm. Left ovary 4.0 x 1.9 x 2.7 cm. No significant focal abnormality. Impression: No significant abnormality PFSH Medical History Unexplained endometrial cells on cervical Pap smear Well woman exam Adult general medical exam Bacterial vaginosis LGSIL on Pap smear of cervix Dysplasia of cervix, low grade (OMAR 1) ASCUS with positive high risk HPV OMAR II (cervical intraepithelial neoplasia II) Family planning Encounter for IUD insertion IUD check up Overweight (BMI 25.0-29.9) Dysplasia of cervix, low grade (OMAR 1) Surgical History History of loop electrical excision procedure (LEEP) H/O knee surgery H/O hand surgery Family History Maternal Grandmother Breast CA Maternal Aunt Breast CA Mother Dementia Father No problems noted. Social History Housing: House Are you a primary customer care assistant to a significant other at home: No Do you presently have visiting nurse or other home services: No Alcohol intake: current Alcohol intake frequency: a few times a month Alcohol type: wine Patient Tobacco Use Status: Never used Tobacco e-Cigarette/Vaping Use: Never Used Second Hand Smoke Exposure: No service: No Current occupational status: employed Current occupational exposures/hazards: No Cognitive needs: No Hearing needs: No Vision needs: No Female Reproductive History Menstrual Age of Menarche: 11 Review of Systems Const All systems reviewed & are unremarkable except as noted in HPI and below Reports as per HPI and Reports no additional complaints GI Reports no additional complaints Reports no additional complaints Telehealth Telehealth Telehealth Platform: [id number] Location of provider rendering services: practice address Location of patient: address on file Patient Identification confirmed using: Name, : Yes Telehealth method: video Patient verbally consented to treatment: Yes Patient verbally consented to billing insurance company: Yes Patient informed of any privacy concerns related to visit: Yes Minutes spent on Phone/Video with Pt.: 7 Assessment & Plan Assessment & Plan (1) Abnormal uterine bleeding (AUB): Comment: ParaGard IUD Code(s): N93.9 - Abnormal uterine and vaginal bleeding, unspecified Category: Medical Plan: Discussed with the patient the results of the work up done and options of treatment including but not limited to BCP's, cyclic Progesterone, Mirena IUD, endometrial ablation and hysterectomy. All pros, cons, risks and benefits of each option were discussed with the patient and the patient decided to go ahead with cyclic Provera, so a more detailed discussion re: Progesterone treatment including mechanism of action, benefits (regular menses, endometrial protection form unopposed estrogen and reduction in the risk of endometrial hyperplasia and/or cancer ...), risks (Thrombosis, mood changes, weight gain, breast sor eness, ? increased breast ca, others). Instructions were given to use a back- up method for contraception since this is not a method control, take the medication 1 tablet daily starting day 15-24 and to schedule a 3 months follow- up appointment; patient verbalized understanding and agreed with the plan. (2) Unexplained endometrial cells on cervical Pap smear: Code(s): R87.618 - Other abnormal cytological findings on specimens from cervix uteri Category: Medical Plan: Discussed with the patient the results of the endometrial biopsy. Discussed with the patient the sensitivity, specificity, positive and negative predictive value, of endometrial biopsy in detecting endometrial pathology including but not limited to endometrial hyperplasia, cancer and other pathology; instructed the patient to call in case vaginal bleeding recurs, the next step will be to proceed with a diagnostic hysteroscopy/D&C for further endometrial sampling evaluation to rule out endometrial pathology. All questions answered and the patient verbalized understanding and agreed with the plan. I spent a total of 20 minutes reviewing the chart, talking to the patient via video and documenting in the medical record. Medications: New medroxyprogesterone (Provera) start Provera 1 tablet daily from day 15-24 cyclically every months, day 1 being 1st day of menses 10 mg PO DAILY 30 tabs 0RF 90 days Coding Level of Care Code Tele Est Pt Level 3 (59530) Diagnoses Abnormal uterine bleeding (AUB) N93.9 Unexplained endometrial cells on cervical Pap smear R87.618
== END 2025-04-19 10:21 | disposition home or self-care (01) ==
LOC: HO.HWS 09:51
PROVIDERS: PCP Internal Medicine; Visit Provider Obstetrics & Gynecology
DX: N93.9 Abnormal uterine and vaginal bleeding, unspecified (principal); R87.618 Other abnormal cytological findings on specimens from cervix uteri
CPT/HCPCS: 99213